=== PATIENT | male | born 1960 | race Caucasian/White ===

== ENCOUNTER → 2017-11-12 | Outpatient (CLI) | payer MEDICARE, SELFPAY | PROVIDERS: Visit Provider Nurse Practitioner Family | DX: Z79.899 Other long term (current) drug therapy (principal) | CPT/HCPCS: 80305 ==

== ENCOUNTER → 2017-11-30 14:08 | Outpatient (CLI) | payer MEDICARE, SELFPAY ==
[2017-11-30 15:42] LABS: Chol/HDL Ratio 3.5 (1-3.5); Cholesterol 170 mg/dL (140-200); HDL Cholesterol 48 mg/dL (27-67); LDL Cholesterol 106 mg/dL (0-130); Prostate Specific Ag Screen 0.6 ng/mL (0.0-4.0); Triglycerides 81 mg/dL (30-200); VLDL Cholesterol 16 mg/dL (0-40)
== END ==
PROVIDERS: PCP Physician Assistant; Visit Provider Urology
DX: E78.4 Other hyperlipidemia (principal); Z12.5 Encounter for screening for malignant neoplasm of prostate; N40.0 Benign prostatic hyperplasia without lower urinary tract symptoms; E29.1 Testicular hypofunction
CPT/HCPCS: 36415; 80061; G0103

== ENCOUNTER → 2017-12-17 10:48 | Outpatient (REF) | payer MEDICARE, SELFPAY ==
[2017-12-17 14:24] LABS: Amphetamine/Metha Screen,Urine Negative ng/mL (<1000); Barbiturates Screen,Urine Negative ng/mL (<200); Benzodiazepines Screen,Urine Negative ng/mL (200); Cannabinoid Screen,Urine Positive ng/mL (<50); Cocaine Screen,Urine Negative ng/g (<300); Methadone Screen,Urine Negative ng/mL (<300); Opiate Screen,Urine Positive ng/mL (<300); Phencyclidine Screen,Urine Negative ng/mL (<25)
== END ==
LOC: LAB 10:48
PROVIDERS: Visit Provider Nurse Practitioner Family
DX: Z79.899 Other long term (current) drug therapy (principal)
CPT/HCPCS: 80305

== ENCOUNTER → 2018-02-09 11:12 | Outpatient (REF) | payer MEDICARE, SELFPAY ==
[2018-02-09 14:07] LABS: Amphetamine/Metha Screen,Urine Negative ng/mL (<1000); Barbiturates Screen,Urine Negative ng/mL (<200); Benzodiazepines Screen,Urine Negative ng/mL (200); Cannabinoid Screen,Urine Positive ng/mL (<50); Cocaine Screen,Urine Negative ng/g (<300); Methadone Screen,Urine Negative ng/mL (<300); Opiate Screen,Urine Positive ng/mL (<300); Phencyclidine Screen,Urine Negative ng/mL (<25)
== END ==
LOC: LAB 11:12
PROVIDERS: Visit Provider Physician Assistant
DX: Z79.899 Other long term (current) drug therapy (principal)
CPT/HCPCS: 80305

== ENCOUNTER → 2018-04-11 14:39 | Outpatient (REF) | payer MEDICARE, SELFPAY ==
[2018-04-11 17:44] LABS: Basophils % 0.3 % (0.1-2.0); Eosinophils # 0.1 K/mm3 (0.0-0.4); Eosinophils % 1.1 % (0.1-12.0); Hematocrit 47.2 % (42.0-52.0); Hemoglobin 15.4 g/dL (14.1-18.0); Lymphocytes # 3.1 K/mm3 (0.7-4.5); Lymphocytes % 31.3 K/mm3 (10-50); Mean Corpuscular HGB Conc 32.7 g/dL (31.8-35.4); Mean Corpuscular Hemoglobin 31.4 pg (27.0-31.2); Mean Platelet Volume 7.6 fl (7.4-10.4); Monocytes # 0.4 K/mm3 (0.1-1.0); Monocytes % 3.7 % (1.7-9.3); Neutrophils # 6.2 K/mm3 (1.8-7.8); Neutrophils % 63.4 % (37.0-80.0); Platelet Count 318 K/mm3 (142-424); Red Blood Count 4.92 M/mm3 (4.60-6.20); Red Cell Distribution Width 13.8 % (11.5-17.5); White Blood Count 9.8 K/mm3 (4.8-10.8)
[2018-04-11 19:23] LABS: Alanine Aminotransferase 28 U/L (12-78); Albumin Level 3.9 gm/dL (3.4-5.0); Albumin/Globulin Ratio 1.2 (1.1-1.8); Alkaline Phosphatase 111 U/L (46-116); Anion Gap 12.8 mEq/L (5-15); Aspartate Amino Transferase 21 U/L (15-37); Bilirubin,Total 0.4 mg/dL (0.2-1.0); Blood Urea Nitrogen 12 mg/dL (7-18); Calcium 9.7 mg/dL (8.5-10.1); Carbon Dioxide 29 mmol/L (21.0-32.0); Chloride 103 mmol/L (98-107); Chol/HDL Ratio 4.3 (1-3.5); Cholesterol 189 mg/dL (140-200); Creatinine,Serum 1.01 mg/dL (0.70-1.30); Estimated Glomerular Filt Rate 75 ml/min (>60); GFR (African American) 91 ML/MIN (>60); Globulin 3.3 gm/dl (1.3-3.2); Glucose 155 mg/dL (74-106); HDL Cholesterol 44 mg/dL (27-67); LDL Cholesterol 116 mg/dL (0-130); Potassium 3.8 mmoL/L (3.5-5.1); Sodium 141 mmol/L (136-145); T4 (Thyroxine) 8.7 ug/dl (4.7-13.3); Thyroid Stimulating Hormone 4.56 uIU/ml (0.358-3.740); Total Protein,Serum 7.2 gm/dL (6.4-8.2); Triglycerides 143 mg/dL (30-200); VLDL Cholesterol 29 mg/dL (0-40)
[2018-04-13 07:43] LABS: Prostate Specific Ag 0.5 ng/mL (0.0-4.0); Vitamin B12 309 pg/mL (232-1245); Vitamin D 25 Hydroxy 23.2 ng/mL (30.0-100.0)
== END ==
LOC: LAB 14:39
PROVIDERS: Visit Provider Physician Assistant
DX: E29.1 Testicular hypofunction (principal); N52.9 Male erectile dysfunction, unspecified; M51.36 Other intervertebral disc degeneration, lumbar region; G62.9 Polyneuropathy, unspecified; Z79.899 Other long term (current) drug therapy
CPT/HCPCS: 80053; 80061; 82607; 82652; 84153; 84154; 84436; 84443; 85025

== ENCOUNTER → 2018-05-10 10:54 | Outpatient (REF) | payer MEDICARE, SELFPAY ==
[2018-05-10 22:58] LABS: Amphetamine/Metha Screen,Urine Negative ng/mL (<1000); Barbiturates Screen,Urine Negative ng/mL (<200); Benzodiazepines Screen,Urine Negative ng/mL (200); Cannabinoid Screen,Urine Positive ng/mL (<50); Cocaine Screen,Urine Negative ng/g (<300); Methadone Screen,Urine Negative ng/mL (<300); Opiate Screen,Urine Positive ng/mL (<300); Phencyclidine Screen,Urine Negative ng/mL (<25)
== END ==
LOC: LAB 10:54
PROVIDERS: Visit Provider Physician Assistant
DX: M54.5 Low back pain (principal)
CPT/HCPCS: 80305

== ENCOUNTER → 2018-10-05 06:47 | Outpatient (CLI) | payer MEDICARE, SELFPAY ==
--- NOTE | 2018-10-05 06:51 | NM_ITS ---
CARDIOLITE SPECT MYOCARDIAL PERFUSION SCAN, REST AND STRESS: EXERCISE STRESS [facility] REVIEW QGS EF AND WALL MOTION EVALUATION: QPS - PERFUSION EVALUATION HISTORY: Chest pain, HTN, Tobacco use, CAD DOSE: 10.44 mCi technetium 99m mibi intravenously at rest followed by 30.3 mCi technetium 99m mibi following the intravenous ministration of 0.4 mg of Lexiscan. Resting blood pressure is 146/75. Stress blood pressure 140/73. FINDINGS: Ejection fraction is calculated to be 55%. Stress images reveal decreased activity in the inferior septal and apical wall. Rest images reveal improved activity Within those areas yet still mildly diminished. Gated images calculated ejection fraction of 55% with normal wall motion IMPRESSION: Previous nontransmural myocardial infarction involving the inferior septal and apical wall with large degree of reversible ischemia. Normal ejection fraction normal wall motion. High risk abnormal stress test
--- NOTE | 2018-10-05 06:51 | CA_ITS ---
PROCEDURE: 2-D M-mode and color Doppler study INDICATIONS FOR THE TEST: Chest pain+ COPD Heart Murmur Tobacco Smoking+ Palpitations Fatigue Syncope Edema Hypertension+Diabetes Mellitus Rheumatic Fever SOB STALEY Obesity Hyperlipidemia Family History HD Additional History CAD, stent PATIENT INFORMATION HEIGHT: 69 WEIGHT: 169 GENDER: Male B/P: 130/60 2-D/M-MODE INTERPRETATION: 2-D MEASUREMENTS OBSERVED VALUES IN CMS Right Ventricular Dimension (RVDd) 2.7 Interventricular Septum (Thickness)(IVsd) 1.2 Left Ventricular Internal Dimensions(LVIDd) 4.6 Left Ventricular Posterior Wall (Thickness)(LVPWd) 1.3 Aortic Root 3.0 Aortic Cusp Separation 2.1 Left Atrial Dimensions (LAD) 3.1 2D 1. Left atrium is mildly enlarged, left ventricle is normal size, mild concentric left ventricular hypertrophy, visually estimated ejection fraction of 55% with no regional wall motion abnormality. 2. The right atrium and right ventricle are mildly enlarged with normal contractility. 3. The aortic valve is thickened and calcified leaflet continue to display mobility. 4. The mitral and tricuspid valvular grossly normal. 5. The pulmonic valve is poorly visualized. 6. No significant pericardial effusion noted. DOPPLER INTERROGATION: Doppler interrogation of the aortic, mitral and tricuspid valvular presence of moderate aortic, mild mitral and tricuspid regurgitation, tricuspid regurgitation jet velocity is inadequate for calculation of the right ventricular systolic pressure, grade 1 diastolic dysfunction seen with tissue Doppler evidence of raised left atrial pressure. CONCLUSION: 1. Mildly enlarged left atrium, normal left ventricular size, mild concentric left ventricular hypertrophy, visually estimated ejection fraction 55% with no regional wall motion abnormality, grade 1 diastolic dysfunction seen with tissue Doppler evidence of raised left atrial pressure. 2. Moderate aortic, mild mitral and tricuspid regurgitation 3. No significant pericardial effusion noted.
--- NOTE | 2018-10-05 07:20 | HMH.ITSHM ---
Current Home Medications as stated by this patient Anupam Holland or loss control representative. []AMLODIPINE METOPROLOL ROSUVASTATIN LOSARTAN OXYCODONE GABAPENTIN QUETIAPINE
[2018-10-05 14:29] LABS: Amphetamine/Metha Screen,Urine Negative ng/mL (<1000); Barbiturates Screen,Urine Negative ng/mL (<200); Benzodiazepines Screen,Urine Negative ng/mL (<200); Cannabinoid Screen,Urine Positive ng/mL (<50); Cocaine Screen,Urine Negative ng/mL (<300); Methadone Screen,Urine Negative ng/mL (<300); Opiate Screen,Urine Positive ng/mL (<300); Phencyclidine Screen,Urine Negative ng/mL (<25)
== END ==
PROVIDERS: PCP Physician Assistant; Visit Provider Internal Medicine
DX: I25.10 Atherosclerotic heart disease of native coronary artery without angina pectoris; R06.00 Dyspnea, unspecified; E78.5 Hyperlipidemia, unspecified; F17.200 Nicotine dependence, unspecified, uncomplicated; I10 Essential (primary) hypertension; R94.31 Abnormal electrocardiogram [ECG] [EKG]
CPT/HCPCS: 78452; 80305; 93017; 93306; A9502; J2785

== ENCOUNTER → 2018-10-05 13:46 | Outpatient (CLI) | payer MEDICARE, SELFPAY | PROVIDERS: Visit Provider Physician Assistant | DX: Z79.899 Other long term (current) drug therapy (principal) | CPT/HCPCS: 80305 ==

== ENCOUNTER → 2018-11-17 11:26 | Outpatient (CLI) | payer MEDICARE, SELFPAY ==
[2018-11-17 12:25] LABS: Alanine Aminotransferase 34 U/L (12-78); Albumin Level 3.6 gm/dL (3.4-5.0); Alkaline Phosphatase 136 U/L (46-116); Bilirubin,Direct 0.1 mg/dL (0.0-0.2); Bilirubin,Indirect 0.1 mg/dL (0.0-0.9); Bilirubin,Total 0.2 mg/dL (0.2-1.0); Cholesterol 144 mg/dL (140-200); HDL Cholesterol 48 mg/dL (27-67); LDL Cholesterol 80 mg/dL (0-130); Total Protein,Serum 6.9 gm/dL (6.4-8.2); Triglycerides 81 mg/dL (30-200); VLDL Cholesterol 16 mg/dL (0-40)
[2018-11-17 12:32] LABS: Aspartate Amino Transferase 26 U/L (15-37)
== END ==
PROVIDERS: Visit Provider Physician Assistant
DX: Z79.899 Other long term (current) drug therapy (principal); E78.5 Hyperlipidemia, unspecified
CPT/HCPCS: 36415; 80061; 80076

== ENCOUNTER → 2019-03-03 08:56 | Outpatient (CLI) | payer MEDICARE, SELFPAY ==
--- NOTE | 2019-03-03 08:59 | US_ITS ---
US abd. aorta screening HISTORY: Screening for aortic aneurysm ITS.REASON: . ORDERING PHYSICIAN: French De León MD PATIENT AGE: 58 years Comparison: None FINDINGS: There is mild plaque present in the abdominal aorta. Maximum AP dimension is 2 cm at the level the umbilicus. No evidence of aneurysm. Proximal common iliacs are unremarkable. IMPRESSION: 1. No evidence of abdominal aortic aneurysm. 2. Atheromatous changes of the aorta are present
== END ==
PROVIDERS: PCP Physician Assistant; Visit Provider Internal Medicine Cardiovascular Disease
DX: E78.5 Hyperlipidemia, unspecified (principal); F17.200 Nicotine dependence, unspecified, uncomplicated; I10 Essential (primary) hypertension; I25.10 Atherosclerotic heart disease of native coronary artery without angina pectoris; R06.00 Dyspnea, unspecified; Z13.6 Encounter for screening for cardiovascular disorders
CPT/HCPCS: 76705

== ENCOUNTER → 2019-05-11 13:36 | Outpatient (CLI) | payer MEDICARE, SELFPAY ==
--- NOTE | 2019-05-11 13:36 | MR_ITS ---
MR lumbar spine wo con, MR 3-d myelogram/MRCP HISTORY: Low back pain X4-5YRS. Bilateral leg pain, numbness, and tingling. No Hx lumbar surgery. ITS.REASON: Low back pain ORDERING PHYSICIAN: JORGE LUIS Hart PATIENT AGE: 59 years Comparison: MRI 10-09-16 TECHNIQUE: Standard multiplanar multiecho sequences are performed without contrast. 3-D MIP and myelographic images are also rendered and reviewed FINDINGS: There is normal alignment. The spinal cord in that the L1-L2 level. L1-L2: Mild facet and ligamentum flavum hypertrophic change. L2-L3: Mild facet and ligamentum flavum hypertrophic change. L3-L4: Minimal bulging disc along with facet and ligamentum flavum hypertrophic change which is not significant change. L4-L5: Concentric bulging disc along with facet and ligamentum flavum hypertrophy with mild bilateral lateral recess and foraminal narrowing. Not significantly changed. L5-S1: Degenerative disc disease with bulging disc with bilateral foraminal narrowing slightly greater on the right. No canal stenosis or disc herniation. Right renal cyst is noted IMPRESSION: 1. Mild multilevel lumbar spondylosis with degenerative disc disease and minimal bulging disc along with mild facet and ligamentum hypertrophy. Please see above for detailed description at each level. 2. Mild bulging disc with mild bilateral foraminal narrowing slightly greater on the right at L5-S1. The right-sided foraminal narrowing may be slightly worse compared to the previous exam. 3. No canal stenosis or disc herniation.
== END ==
PROVIDERS: PCP Physician Assistant; Visit Provider Physician Assistant
DX: M51.36 Other intervertebral disc degeneration, lumbar region (principal); M54.5 Low back pain
CPT/HCPCS: 72148; 76376

== ENCOUNTER → 2019-07-05 13:54 | Outpatient (CLI) | payer MEDICARE, SELFPAY ==
[2019-07-05 15:32] LABS: Amphetamine/Metha Screen,Urine Negative ng/mL (<1000); Barbiturates Screen,Urine Negative ng/mL (<200); Benzodiazepines Screen,Urine Negative ng/mL (<200); Cannabinoid Screen,Urine Positive ng/mL (<50); Cocaine Screen,Urine Negative ng/mL (<300); Methadone Screen,Urine Negative ng/mL (<300); Opiate Screen,Urine Positive ng/mL (<300); Phencyclidine Screen,Urine Negative ng/mL (<25)
== END ==
PROVIDERS: Visit Provider Physician Assistant
DX: M51.36 Other intervertebral disc degeneration, lumbar region (principal)
CPT/HCPCS: 80305

== ENCOUNTER → 2019-11-01 14:42 | Outpatient (CLI) | payer MEDICARE, SELFPAY ==
[2019-11-01 15:06] LABS: Basophils % 0.3 % (0.1-2.0); Eosinophils # 0.2 K/mm3 (0.0-0.4); Eosinophils % 1.9 % (0.1-12.0); Hemoglobin 16.7 g/dL (14.1-18.0); Lymphocytes % 35.2 % (10-50); Mean Corpuscular HGB Conc 30.3 g/dL (31.8-35.4); Mean Corpuscular Hemoglobin 30.9 pg (27.0-31.2); Mean Corpuscular Volume 101.8 fl (80-94); Monocytes # 0.6 K/mm3 (0.1-1.0); Monocytes % 4.9 % (1.7-9.3); Neutrophils # 6.6 K/mm3 (1.8-7.8); Neutrophils % 57.7 % (37.0-80.0); Platelet Count 386 K/mm3 (142-424); Red Cell Distribution Width 14.2 % (11.5-17.5); White Blood Count 11.4 K/mm3 (4.8-10.8)
[2019-11-01 15:33] LABS: Alanine Aminotransferase 36 U/L (12-78); Albumin Level 4.2 gm/dL (3.4-5.0); Albumin/Globulin Ratio 1.1 (1.1-1.8); Alkaline Phosphatase 138 U/L (46-116); Anion Gap 18.1 mEq/L (5-15); Aspartate Amino Transferase 22 U/L (15-37); Bilirubin,Total 0.3 mg/dL (0.2-1.0); Blood Urea Nitrogen 17 mg/dL (7-18); Calcium 9.7 mg/dL (8.5-10.1); Carbon Dioxide 26 mmol/L (21.0-32.0); Chloride 99 mmol/L (98-107); Chol/HDL Ratio 4.1 (1-3.5); Cholesterol 204 mg/dL (140-200); Creatinine,Serum 1.18 mg/dL (0.70-1.30); Estimated Glomerular Filt Rate 63 ml/min (>60); GFR (African American) 76 ML/MIN (>60); Globulin 3.8 gm/dl (1.3-3.2); Glucose 107 mg/dL (74-106); HDL Cholesterol 50 mg/dL (27-67); LDL Cholesterol 136 mg/dL (0-130); Potassium 5.1 mmoL/L (3.5-5.1); Sodium 138 mmol/L (136-145); T4 (Thyroxine) 8.1 ug/dl (4.7-13.3); Thyroid Stimulating Hormone 4.86 uIU/ml (0.358-3.740); Triglycerides 91 mg/dL (30-200); VLDL Cholesterol 18 mg/dL (0-40)
[2019-11-03 11:39] LABS: Folate 6.8 ng/mL (>3.0); Vitamin D 25 Hydroxy 14.5 ng/mL (30.0-100.0)
[2019-11-03 19:32] LABS: Vitamin B12 425 pg/mL (232-1245)
== END ==
PROVIDERS: Visit Provider Physician Assistant
DX: I10 Essential (primary) hypertension (principal); E55.9 Vitamin D deficiency, unspecified
CPT/HCPCS: 80053; 80061; 82607; 82652; 82746; 84436; 84443; 85025

== ENCOUNTER → 2020-06-10 13:21 | Outpatient (CLI) | payer MEDICARE, SELFPAY ==
[2020-06-10 13:36] LABS: Basophils % 0.2 % (0.1-2.0); Chloride 104 mmol/L (98-107); Eosinophils # 0.3 K/mm3 (0.0-0.4); Eosinophils % 3.3 % (0.1-12.0); Hemoglobin 15.2 g/dL (14.1-18.0); Lymphocytes # 3.2 K/mm3 (0.7-4.5); Lymphocytes % 31.9 % (10-50); Mean Corpuscular HGB Conc 33.9 g/dL (31.8-35.4); Mean Corpuscular Hemoglobin 33.7 pg (27.0-31.2); Mean Corpuscular Volume 99.4 fl (80-94); Mean Platelet Volume 8.7 fl (7.4-10.4); Monocytes # 0.6 K/mm3 (0.1-1.0); Monocytes % 5.6 % (1.7-9.3); Neutrophils % 59.1 % (37.0-80.0); Platelet Count 323 K/mm3 (142-424); Potassium 4.7 mmoL/L (3.5-5.1); Red Blood Count 4.53 M/mm3 (4.60-6.20); Red Cell Distribution Width 14.3 % (11.5-17.5); Sodium 141 mmol/L (136-145); White Blood Count 10.1 K/mm3 (4.8-10.8)
[2020-06-10 13:38] LABS: Alanine Aminotransferase 80 U/L (12-78); Alkaline Phosphatase 106 U/L (38-126); Aspartate Amino Transferase 76 U/L (17-59); Bilirubin,Total 0.3 mg/dl (0.2-1.3); Blood Urea Nitrogen 12 mg/dl (9-20); Estimated Glomerular Filt Rate 86 ml/min (>60); GFR (African American) 103 ML/MIN (>60)
[2020-06-10 13:39] LABS: Albumin Level 4.3 g/dl (3.5-5.0); Albumin/Globulin Ratio 1.5 (1.1-1.8); Anion Gap 15.7 mEq/L (5-15); Calcium 9.8 mg/dl (8.4-10.2); Carbon Dioxide 26 mmol/L (22.0-30.0); Chol/HDL Ratio 3.6 (1-3.5); Cholesterol 206 mg/dl (140-200); Globulin 2.9 g/dL (1.3-3.2); Glucose 104 mg/dl (74-100); HDL Cholesterol 58 mg/dl (40-60); Total Protein,Serum 7.2 g/dl (6.3-8.2); Triglycerides 167 mg/dl (30-150); VLDL Cholesterol 33 mg/dL (0-40)
[2020-06-10 13:50] LABS: Direct LDL Cholesterol 121.06 mg/dL (100-129)
[2020-06-10 13:56] LABS: T4 (Thyroxine) 6.6 ug/dl (5.53-11.0)
[2020-06-10 14:10] LABS: Thyroid Stimulating Hormone 2.19 uIU/mL (0.465-4.68)
[2020-06-10 16:10] LABS: Prostate Specific Ag Screen 0.6 ng/ml (0.0-4.0)
[2020-06-12 14:30] LABS: Hep A Ab, IgM Negative (Negative); Hepatitis B Core Antibody IgM Negative (Negative); Hepatitis B Surface Antigen Negative (Negative)
[2020-06-13 09:37] LABS: Hepatitis C Antibody >11.0 s/co ratio (0.0-0.9)
== END ==
PROVIDERS: Visit Provider Physician Assistant
DX: G47.00 Insomnia, unspecified; M51.9 Unspecified thoracic, thoracolumbar and lumbosacral intervertebral disc disorder; E78.5 Hyperlipidemia, unspecified; R53.83 Other fatigue; E07.9 Disorder of thyroid, unspecified
CPT/HCPCS: 80053; 80061; 80074; 84436; 84443; 85025; G0103

== ENCOUNTER → 2020-06-17 11:25 | Outpatient (CLI) | payer MEDICARE, SELFPAY | PROVIDERS: Visit Provider Physician Assistant | DX: R76.8 Other specified abnormal immunological findings in serum | CPT/HCPCS: 36415; 87522 ==

== ENCOUNTER → 2020-08-30 11:33 | Outpatient (CLI) | payer MEDICARE, SELFPAY ==
[2020-08-30 11:56] LABS: Basophils % 0.5 % (0.1-2.0); Eosinophils # 0.3 K/mm3 (0.0-0.4); Eosinophils % 3.5 % (0.1-12.0); Hematocrit 50.5 % (42.0-52.0); Hemoglobin 16.3 g/dL (14.1-18.0); Mean Corpuscular HGB Conc 32.3 g/dL (31.8-35.4); Mean Corpuscular Hemoglobin 33.2 pg (27.0-31.2); Mean Corpuscular Volume 102.7 fl (80-94); Mean Platelet Volume 7.2 fl (7.4-10.4); Monocytes # 0.5 K/mm3 (0.1-1.0); Monocytes % 5.3 % (1.7-9.3); Neutrophils # 4.6 K/mm3 (1.8-7.8); Neutrophils % 48.7 % (37.0-80.0); Platelet Count 317 K/mm3 (142-424); Red Blood Count 4.92 M/mm3 (4.60-6.20); Red Cell Distribution Width 13.5 % (11.5-17.5); White Blood Count 9.5 K/mm3 (4.8-10.8)
[2020-08-30 13:46] LABS: Anion Gap 14.5 mEq/L (5-15); Blood Urea Nitrogen 14 mg/dl (9-20); Calcium 10.1 mg/dl (8.4-10.2); Carbon Dioxide 29 mmol/L (22.0-30.0); Chloride 101 mmol/L (98-107); Estimated Glomerular Filt Rate 76 ml/min (>60); GFR (African American) 92 ML/MIN (>60); Glucose 103 mg/dl (74-100); Potassium 4.5 mmoL/L (3.5-5.1); Sodium 140 mmol/L (136-145)
[2020-08-30 15:44] LABS: Coronavirus 19 IgG Antibody Negative (Negative); Coronavirus 19 IgM Antibody Negative (Negative)
== END ==
PROVIDERS: Visit Provider Internal Medicine
DX: Z01.89 Encounter for other specified special examinations (principal); Z79.82 Long term (current) use of aspirin; Z51.81 Encounter for therapeutic drug level monitoring
CPT/HCPCS: 36415; 80048; 85025; 86328

== ENCOUNTER 2020-09-02 08:57 | Day surgery (SDC) | payer MEDICARE, SELFPAY ==
[2020-09-02] VITALS (10 sets, daily range): BP systolic 127–173; BP diastolic 72–102; PULSE 64–78; RESP 16–18; TEMP 36.3; O2SAT 94–97; BMI 27.7
--- NOTE | 2020-09-02 | IR_ITS ---
APPROVED REPORT Patient Location: Outpatient Concrete Bucket Unloader: SOHAN Trejo RT (R) PROCEDURES Left heart catheterization Left ventriculogram Selective coronary angiogram Drug-eluting stent deployment to the proximal mid dominant circumflex artery Catheter placement in the left common iliac artery Left iliofemoral selective angiogram Catheter placement into the left superficial femoral artery Left superficial femoral artery selective angiogram with unilateral runoff to the left foot INDICATION Coronary artery disease, Angina pectoris, Claudication, Peripheral artery disease Informed consent was obtained prior to the procedure. COMPLICATIONS none Estimated Blood Loss: less than 10 mls TECHNIQUE One percent lidocaine was used to anesthetize the right groin. The right femoral artery was accessed via the Seldinger technique. A 5-Khmer sheath was placed in the right femoral artery. The JL-4 and JR-4 catheter was also used to perform left heart catheterization left ventriculogram and selective coronary angiogram. At the end of the procedure the JR4 catheter was used to cannulate the left common iliac artery and iliofemoral angiography was performed. The catheter was then advanced into the left superficial femoral artery where selective left superficial femoral artery angiography was performed with unilateral runoff to the left foot. At the end of the procedure therapeutic heparin was administered and the 5 Khmer sheath was exchanged for a 6 Khmer sheath. An EBU 3.75 guide catheter was placed in the circumflex artery where 3 mm x 26 mm resolute deandra stent was deployed at 18 ramírez reducing the stenosis. A 3 mm x 8 mm noncompliant balloon was then used to post dilate and under deployed area. The balloon was taken to 24 ramírez. Following this an additional 3.25 x 8 mm noncompliant balloon was then placed in the same area and deployed at 24 ramírez thereby finally reducing the stenosis to 0%. JEAN-PAUL-3 flow was present before and after the procedure. At the end of the procedure the apparatus was removed the groin was reprepped gloves were changed sheath was removed good hemostasis was achieved using Perclose device patient was transferred to the postop holding area stable condition ANGIOGRAPHIC RESULTS The left main artery Normal The left anterior descending artery Has stents in the proximal segment which are widely patent with mild 20% in-stent restenosis. Remaining LAD has mild atheromatous plaque nothing greater than 20% The circumflex artery Is a large dominant vessel giving rise to a large ramus intermedius which has an ostial proximal 10 to 20% smooth stenosis. After the ramus intermedius the proximal circumflex artery has a concentric 80 to 90% stenosis which represents in-stent restenosis. The remaining vessel has mild atheromatous plaque of 10 to 20% The right coronary artery Nondominant normal The LEA ventriculogram reveals Normal 65% The left ventricular end-diastolic pressure 10 mmHg Left common internal and external iliac arteries are patent with mild 10% atheromatous plaque Left common femoral arteries normal Left profunda femoris artery is normal Left superficial femoral artery has mild atheromatous plaque nothing greater than 20 to 30% Left popliteal artery has mild 10 to 20% atheromatous plaque The anterior tibialis artery and peroneal arteries are both patent. The left posterior tibialis artery appears proximally occluded. There is two-vessel runoff into the left foot IMPRESSION Coronary disease as described above Successful stenting of the circumflex artery severe disease reduced to 0% with one drug-eluting stent Normal ejection fraction Normal left ventricular end-diastolic pr
[2020-09-02 12:42] LABS: CATHL Activated Clotting Time 285 SEC (74-125)
[2020-09-02 12:42] LABS: CATHL Activated Clotting Time 310 SEC (74-125)
--- NOTE | 2020-09-02 13:56 | HMH.PHACLD ---
Anupam Holland has received discharge medication counseling on the following medications: PATIENT IS CURRENT TAKING PLAVIX, ASPIRIN, ROSUVASTATIN, METOPROLOL, AND LOSARTAN. NO MED CHANGES MADE BY MD POST CATH.
== END 2020-09-02 14:45 | disposition home or self-care (01) ==
LOC: CATHLAB 08:59
PROVIDERS: PCP Physician Assistant; Visit Provider Internal Medicine
DX: I25.118 Atherosclerotic heart disease of native coronary artery with other forms of angina pectoris (principal); I77.1 Stricture of artery; T82.855A Stenosis of coronary artery stent, initial encounter; I70.212 Atherosclerosis of native arteries of extremities with intermittent claudication, left leg; Z95.5 Presence of coronary angioplasty implant and graft; I10 Essential (primary) hypertension; E78.5 Hyperlipidemia, unspecified; Z72.0 Tobacco use
CPT/HCPCS: 36247; 75710; 85347; 92928; 93458; 99152; 99153; C1725; C1760; C1769; C1776; C1876; C1894; C9600; J1644; Q9967

== ENCOUNTER → 2020-11-29 14:33 | Outpatient (CLI) | payer MEDICARE, SELFPAY ==
--- NOTE | 2020-11-29 14:43 | XR_ITS ---
PROCEDURE: XR CHEST 2V CLINICAL HISTORY: smoker, cough Chest pain, cough, smoker COMPARISON: CR CXR CHEST(2 VIEWS-NOT PORTABLE) from 05/13/2017 FINDINGS: The cardiomediastinal silhouette and pulmonary vascularity are within normal limits. The lungs are clear without infiltrates, suspicious nodules, or pleural effusions. Degenerative changes are present in the thoracic spine IMPRESSION: No acute findings. Dictated by: Gaurav Gould MD 11/29/2020 15:48 Gaurav Gould MD in [facility] 11/29/2020 15:48
== END ==
PROVIDERS: PCP Physician Assistant; Visit Provider Physician Assistant
DX: F17.210 Nicotine dependence, cigarettes, uncomplicated (principal); R05 Cough
CPT/HCPCS: 71046

== ENCOUNTER → 2020-12-05 12:49 | Outpatient (CLI) | payer MEDICARE, SELFPAY ==
--- NOTE | 2020-12-05 14:23 | CT_ITS ---
PROCEDURE: CT SINUS WO CON CLINICAL HISTORY: can't breathe PT STATES HE CANT BREATHE OUT OF LEFT NOSTRIL X 15 YEARS NO PRIOR COMPARISON: No exams were available for comparison TECHNIQUE: Axial images obtained with sagittal and coronal reformats. All CT scans at the facility use one or more dose reduction, viz: automated exposure control, ma/kV adjustment per patient size (including targeted exams where dose is matched to indication, i.e. head), or iterative reconstruction technique. FINDINGS: No significant mucosal thickening. No sinus air-fluid levels. There is a small septal spur projecting toward the left resulted in the leftward nasal septal deviation. The nasal turbinates have an unremarkable appearance. The distal aspect of the nose is angled toward the right. There is moderate deviation of the nasal septum anteriorly toward the left causing narrowing of the left nasal passage. No sonia bullosa. The ostiomeatal units are patent. There are small calcific densities within the parotid glands on both sides. No evidence stone stones within Stensen's. No submandibular calculi evident. The orbits have an unremarkable appearance as do the mastoid sinuses. The patient is edentulous. There is a bony defect within the mandible on the right in the parasymphyseal region containing a small calcification and may represent a periapical abscess with a residual small [place] of 2. Dental correlation suggested. There are osteoarthritic changes of the TMJs with narrowing of the left mandibular condyle. IMPRESSION: 1. Leftward nasal septal deviation anteriorly involving the membranous septum causing narrowing of the nasal passage. 2. Multiple tiny calcifications in the parotid glands suggesting numerous small calculi but no evidence of stones within the duct. 3. Small defect in the parasymphyseal region of the mandible on the right possibly due to a periapical cyst with a small residual amount of tooth. Dental correlation needed. 4. TMJ osteoarthritic change Dictated by: Gaurav Gould MD 12/06/2020 05:37 Gaurav Gould MD in [facility] 12/06/2020 05:37
--- NOTE | 2020-12-05 14:23 | CT_ITS ---
PROCEDURE: CT LUNG SCREENING CLINICAL INDICATION: Smoker Current smoker 70.5 pack year smoking history No prior COMPARISON: US ABD US ABD(COMPLETE-MULTI ORGANS from 01/20/2017 TECHNIQUE: The exam was performed on a GE Light Speed [address] scanner using 2.90 mGy CTDI. A low dose helical CT CHEST was performed on a multi-detector scanner. All CT scans at the facility use one or more dose reduction, viz: automated exposure control, ma/kV adjustment per patient size (including targeted exams where dose is matched to indication, i.e. head), or iterative reconstruction technique. The LDCT was performed in a facility that meets the criteria for the screening program. Data regarding this exam was submitted to ACR which is an approved registry. The order for this exam indicates that it came as a result of a lung cancer screening counseling shard decision-making visit that included all the elements required of such a visit including smoking cessation. The radiologist interpreting this exam meets the CMS criteria for the LDCT lung cancer screening program. The exam is reported using the Lung-RADS classification scale and reported to the ACR registry. NOTE: This study was performed for the specific purposes of lung cancer screening and is not an alternative to diagnostic chest CT. RADIATION DOSE: CTDI vol(CT dose Index-volume) = 2.90mG DLP (Dose Length Product) = 101.34 mGcm FINDINGS: Paraseptal and centrilobular emphysema with COPD and scattered areas of scarring with evidence of old granulomatous disease. No suspicious nodules identified OTHER FINDINGS: Coronary artery calcification and/or stents. Gynecomastia. There is a 12 mm hypodensity in the left hepatic lobe in the subcapsular region superiorly IMPRESSION: Lung-RADS Category 2 Benign Appearance or Behavior Follow-up: Continue annual screening with LDCT in 12 months 12 mm hypodensity in the left hepatic lobe. Consider ultrasound to determine cystic or solid nature. Dictated by: Gaurav Gould MD 12/09/2020 06:15 Gaurav Gould MD in [facility] 12/09/2020 06:15
[2020-12-05 16:06] VITALS: PULSE 84
== END ==
PROVIDERS: PCP Physician Assistant; Visit Provider Physician Assistant
DX: J34.89 Other specified disorders of nose and nasal sinuses; Z87.891 Personal history of nicotine dependence; J44.9 Chronic obstructive pulmonary disease, unspecified; R06.02 Shortness of breath; Z12.2 Encounter for screening for malignant neoplasm of respiratory organs
CPT/HCPCS: 70486; 71271; 94060; 94618; 94640; 94727; 94729

== ENCOUNTER → 2020-12-17 08:50 | Outpatient (CLI) | payer MEDICARE, SELFPAY ==
--- NOTE | 2020-12-17 08:55 | US_ITS ---
PROCEDURE: US LIVER CLINICAL INDICATION: Hypodensity of liver Evaluate liver lesion COMPARISON: US ABD US ABD(COMPLETE-MULTI ORGANS from 01/20/[address] LUNG SCREENING from 12/05/2020 FINDINGS: PANCREAS: Unremarkable. No obvious mass or abnormal fluid collection. No ductal dilatation LIVER: There is a 15 x 10 mm benign-appearing cyst in the left hepatic lobe corresponding to the CT abnormality. RIGHT KIDNEY: A complex cyst is present involving the right kidney measuring 4 x 2.8 x 2.6 cm. There is increased echogenicity along the anterior aspect of the cyst. This did have a similar appearance on older ultrasound of 01/20/2017. GALLBLADDER: Prior cholecystectomy. Common bile duct is normal at 5 mm. IMPRESSION: 1. Hypodense hepatic lesion represents a benign-appearing cyst. 2. There is a complex right renal cyst at 4 x 2.8 cm. There is increased echogenicity along the anterior aspect of the cyst which had a similar appearance on the previous exam. The dimensions of the cyst are however larger on today's exam. This may be technical in nature. Suggest 6 month follow-up to confirm interval stability. Dictated by: Gaurav Gould MD 12/17/2020 19:04 Gaurav Gould MD in [place] 12/17/2020 19:04
== END ==
PROVIDERS: PCP Physician Assistant; Visit Provider Physician Assistant
DX: R16.0 Hepatomegaly, not elsewhere classified (principal)
CPT/HCPCS: 76705

== ENCOUNTER → 2021-01-22 13:55 | Outpatient (CLI) | payer MEDICARE, SELFPAY ==
[2021-01-22 15:08] LABS: Amphetamine/Metha Screen,Urine Negative ng/ml (<1000)
[2021-01-22 15:09] LABS: Barbiturates Screen,Urine Negative ng/ml (<200)
[2021-01-22 15:10] LABS: Benzodiazepines Screen,Urine Positive ng/ml (<200)
[2021-01-22 15:11] LABS: Cannabinoid Screen,Urine Positive ng/ml (<50); Cocaine Screen,Urine Negative ng/ml (<300)
[2021-01-22 15:12] LABS: Methadone Screen,Urine Negative ng/ml (<300)
[2021-01-22 15:19] LABS: Opiate Screen,Urine Positive ng/ml (<300)
[2021-01-22 15:20] LABS: Phencyclidine Screen,Urine Negative ng/ml (<25)
== END ==
PROVIDERS: Visit Provider Physician Assistant
DX: Z79.899 Other long term (current) drug therapy (principal)
CPT/HCPCS: 80305

== ENCOUNTER → 2021-04-25 10:51 | Outpatient (CLI) | payer MEDICARE, SELFPAY ==
--- NOTE | 2021-04-25 10:52 | CA_ITS ---
APPROVED REPORT EXAM: Comprehensive 2D, Doppler, and color-flow Echocardiogram Registered Health Nurse: Key Dee RT(R) Ht: 5 ft 9 in Wt: 185lbs BSA: 2.00 BP: 119/72 mmHg Indications: Sinus tachycardia, pre op clearance for nasal surgery 04/29/21, smoker, hyperlipidemia, HTN, CAD, mod Aortic regurgitation, Abn EKG 2D Dimensions LVOT 2.21 cm (M/F) 1.5-2.5 LVEF (Martínez's) 50.10 % M: 52 - 72 LV Volume 96.00 mL M: 62 - 150 LV Volume Index 48.00 mL/m2 M: 34 - 74 M-Mode Dimensions RVDd 2.68 cm (0.9-2.6) LA Diam 2.26 cm (1.9-4.0) LVDd 4.89 cm (3.5-5.7) Ao Diam 3.24 cm (2.0-3.7) LVDs 3.57 cm (3.5-5.7) IVSd 1.36 cm (0.6-1.1) PWd 0.85 cm (0.6-1.1) EF (Teich) 52.50% FS 27.00% EDV (Teich) 112.30 mL ESV (Teich) 53.30 mL LV Diastology E Decel Time 190.00 (160-240 msec) E/A Ratio 0.9 MED E' 4.80 (< 7 cm/sec) E'/MED E' Ratio 15.19 (>14) LAT E' 6.40 (<10 cm/sec) E/LAT E' Ratio 11.39 (>14) Aortic Valve AoV Peak Akhil. 120.00 (50-130 cm/s) AI PHT 665.00 ms AO Peak GR. 5.70 mmHg AO Mean GR. 2.80 (<5 mmHg) AO VTI 21.04 (18-25 cm) Mitral Valve MV E Max Akhil. 73.00 (40-130 cm/s) MV A Velocity 85.00 (40-130 cm/s) E/A Ratio 0.85 MV Decel. Time 190.00 (160-240 ms) MV PHT 56.00 ms Left Ventricle Left atrium is mildly enlarged, left ventricle is normal size, mild concentric left ventricular hypertrophy, visually estimated ejection fraction 55% with no regional wall motion abnormality, grade 1 diastolic dysfunction seen without tissue Doppler evidence of raise left atrial pressure. Right Ventricle Right atrium and right ventricle are normal size and contractility. Aortic Valve Aortic valve is minimally thickened and calcified there is no aortic stenosis, there is mild aortic insufficiency. Mitral Valve Mitral valve leaflets are minimally thickened, there is mild mitral regurgitation. Tricuspid Valve Tricuspid grossly normal, there is trace tricuspid regurgitation, tricuspid regurgitation jet velocity is inadequate for calculation of the right ventricular systolic pressure. Pulmonic Valve Pulmonic valve is poorly visualized. Great Vessels Aortic root is normal size. Pericardium No significant pericardial effusion noted. Conclusion 1. Mildly enlarged left atrium, normal left ventricular size, mild concentric left ventricular hypertrophy, visually estimated ejection fraction 55% with no regional wall motion abnormality, grade 1 diastolic dysfunction seen without tissue Doppler evidence of raise left atrial pressure. 2. Mild aortic, mild mitral and tricuspid regurgitation. 3. No significant pericardial effusion noted. Electronically signed by : French De León, 04/25/2021 15:04:49
== END ==
PROVIDERS: PCP Physician Assistant; Visit Provider Nurse Practitioner Family
DX: I25.10 Atherosclerotic heart disease of native coronary artery without angina pectoris (principal); I35.1 Nonrheumatic aortic (valve) insufficiency
CPT/HCPCS: 93306

== ENCOUNTER → 2021-04-25 11:22 | Outpatient (CLI) | payer MEDICARE, SELFPAY ==
[2021-04-25 12:30] LABS: Alanine Aminotransferase 26 U/L (12-78); Albumin Level 4.7 g/dl (3.5-5.0); Alkaline Phosphatase 127 U/L (38-126); Aspartate Amino Transferase 33 U/L (17-59); Bilirubin,Direct 0.4 mg/dl (0.0-0.4); Bilirubin,Total 0.4 mg/dl (0.2-1.3); Chol/HDL Ratio 5.5 (1-3.5); Cholesterol 231 mg/dl (140-200); HDL Cholesterol 42 mg/dl (40-60); Total Protein,Serum 7.6 g/dl (6.3-8.2); Triglycerides 169 mg/dl (30-150); VLDL Cholesterol 34 mg/dL (0-40)
== END ==
PROVIDERS: Visit Provider Nurse Practitioner Family
DX: E55.9 Vitamin D deficiency, unspecified (principal); E78.2 Mixed hyperlipidemia; F17.200 Nicotine dependence, unspecified, uncomplicated; I10 Essential (primary) hypertension; I25.10 Atherosclerotic heart disease of native coronary artery without angina pectoris; I35.1 Nonrheumatic aortic (valve) insufficiency; R00.0 Tachycardia, unspecified; R94.31 Abnormal electrocardiogram [ECG] [EKG]; Z01.810 Encounter for preprocedural cardiovascular examination
CPT/HCPCS: 36415; 80061; 80076; 93306

== ENCOUNTER → 2021-04-29 14:55 | Outpatient (CLI) | payer MEDICARE, SELFPAY ==
[2021-04-29 15:33] LABS: Basophils # 0.1 K/mm3 (0-0.2); Basophils % 0.4 % (0.1-2.0); Eosinophils # 0.4 K/mm3 (0.0-0.4); Eosinophils % 3.3 % (0.1-12.0); Hematocrit 49.1 % (42.0-52.0); Hemoglobin 16.3 g/dL (14.1-18.0); Lymphocytes # 3.7 K/mm3 (0.7-4.5); Lymphocytes % 30.9 % (10-50); Mean Corpuscular HGB Conc 33.2 g/dL (31.8-35.4); Mean Corpuscular Hemoglobin 31.9 pg (27.0-31.2); Mean Corpuscular Volume 96.1 fl (80-94); Mean Platelet Volume 7.9 fl (7.4-10.4); Monocytes # 0.6 K/mm3 (0.1-1.0); Monocytes % 5.1 % (1.7-9.3); Neutrophils # 7.3 K/mm3 (1.8-7.8); Neutrophils % 60.4 % (37.0-80.0); Platelet Count 330 K/mm3 (142-424); Red Blood Count 5.11 M/mm3 (4.60-6.20); White Blood Count 12.1 K/mm3 (4.8-10.8)
--- NOTE | 2021-04-29 16:03 | ECG_ITS ---
APPROVED REPORT Exam: Resting ECG HR:70 bpm ECG Measurements Heart Rate 70 AXES MA 188 P 70 QRSd 108 QRS 44 QT 400 T 26 QTc 432 Conclusion Normal sinus rhythm Normal ECG Electronically signed by : Mariusz Brantley, 04/29/2021 21:57:43
[2021-04-29 17:22] LABS: Chloride 100 mmol/L (98-107); Potassium 4.9 mmoL/L (3.5-5.1); Sodium 137 mmol/L (136-145)
[2021-04-29 17:24] LABS: Alanine Aminotransferase 29 U/L (12-78); Aspartate Amino Transferase 34 U/L (17-59); Blood Urea Nitrogen 16 mg/dl (9-20); Estimated Glomerular Filt Rate 68 ml/min (>60); GFR (African American) 82 ML/MIN (>60)
[2021-04-29 17:25] LABS: Albumin Level 4.8 g/dl (3.5-5.0); Albumin/Globulin Ratio 1.6 (1.1-1.8); Alkaline Phosphatase 124 U/L (38-126); Anion Gap 14.9 mEq/L (5-15); Bilirubin,Total 0.6 mg/dl (0.2-1.3); Calcium 9.8 mg/dl (8.4-10.2); Carbon Dioxide 27 mmol/L (22.0-30.0); Glucose 81 mg/dl (74-100); Total Protein,Serum 7.8 g/dl (6.3-8.2)
== END ==
PROVIDERS: Visit Provider Otolaryngology
DX: Z01.812 Encounter for preprocedural laboratory examination (principal); Z11.52 Encounter for screening for COVID-19; J34.2 Deviated nasal septum; R68.89 Other general symptoms and signs; Z51.81 Encounter for therapeutic drug level monitoring; Z79.01 Long term (current) use of anticoagulants
CPT/HCPCS: 36415; 80053; 85025; 93005; U0003

== ENCOUNTER 2021-05-01 07:17 | Day surgery (SDC) | payer MEDICARE, SELFPAY ==
[2021-04-30 08:17] VITALS: BMI 27.4
[2021-05-01] VITALS (12 sets, daily range): BP systolic 96–169; BP diastolic 55–86; PULSE 88–112; RESP 14–18; TEMP 36.6–37.2; O2SAT 91–96
--- NOTE | 2021-05-01 09:35 | HMH.ANESCL ---
[facility] Anesthesia Checklist - Patient Identification Patient Identification: Arm Band - Structural Data Admitted From: Home Planned Operative Procedure/s: nasal septoplasty Consent for Planned Operative Procedure(s) Verified: Yes Verified Documents: Surgical Consent, History and Physical - NPO Status Verified Time NPO: 00:00 - Additional verifications Anesthesia Reactions: No Hx Blood Transfusions: No Blood Transfusion Reaction: No - Airway Assessment C-Spine Mobility Assessed: Yes (mp2) TMJ Mobility Assessed: Yes Dentition: Edentulous - Neurological Assessment Level of Consciousness: Awake, Alert - Anesthesia Plan Anesthesia Risk discussed: Yes Anesthesia Plan: Verified ASA Class: III Anesthesia Type: General [facility] History I have reviewed the patient's past medical history: Yes Medical History: Reports:: Coronary Artery Disease, Hepatitis, Hyperlipidemia, Hypertension Denies:: Cancer, Diabetes Mellitus Type 1, Diabetes Mellitus Type 2, Internal Pacemaker, MRSA, Seizures *Have you ever received a pneumonia vaccine?: No *Have you received a flu vaccine this season?: No Other Medical History: Reports: Hypothyroidism, Other. Denies: Blood Transfusion Reaction Anesthesia experience/problems:: nac Other Surgeries: Yes: Cardiac Catheterization, Cardiac Surgery, Cholecystectomy, Colonoscopy, Coronary Stent. No: Pacemaker Amputation: No Fractures: No - *Social History Last grade of school completed: 9th or 10th Smoking Status: Current every day smoker Tobacco Type: cigarettes # Packs/Day (cigarettes): 1 Alcohol Intake: current Alcohol Intake Frequency:: 3 or more drinks per day Substance Use Type: marijuana *Occupational Status:: disabled Housing: house Household Members: none *Travel in the last 8 weeks: None Family Hx:: No significant family history, Hypertension
--- NOTE | 2021-05-01 09:36 | HMH.ANESI ---
[facility] Anesthesia Record Part I Intake, IV Amount: 1,100 Estimated blood loss (mL): 10 Urine output (mL): 0 Blood Pressure: 98/59 SaO2: 92 Pulse Rate: 88 Respiratory Rate: 16 Temperature: 98 F Patient is:: Drowsy, Stable Stable to PACU at:: 09:30
--- NOTE | 2021-05-01 10:23 | P.OP_ITS ---
Date of procedure: 05/01/21 Pre-op Diagnosis:: 1. Deviated nasal septum to the left with 90% nasal airflow blockage 2. Allergic rhinitis 3. Hypertrophied inferior turbinates right and left Post-op Diagnosis:: same Procedure performed:: 1. Nasal septoplasty 2. Submucous resection both inferior turbinates Surgeon:: Keith Araya MD SUPERVISOR SALVAGE:: Viktor Baker Anesthesia: GETA Estimated blood loss (mL): 9 Operative findings:: same Operative note:: With patient under general anesthesia maintained with an endotracheal tube the face was prepped and draped. The nose was decongested with topical cocaine and 4 cc of 2% lidocaine with epinephrine were injected into the nasal septum. There was a severely deviated nasal septum to the left with a spur along the base of the septum and 90% nasal airflow blockage. A left hemitransfixion incision was made in the mucoperichondrium and the mucoperiosteum was elevated from the nasal septum. The spur of the quadrangular cartilage was removed and the posterior aspect of the quadrangular cartilage which was severely bent was removed. The vomer was straightened as was the prepped as well as the perpendicular plate of the ethmoid. And when that was done the septum could be placed in the midline. Both inferior turbinates were hyperplastic a right submucous inferior turbinectomy was done as well as a left submucous turbinectomy. Bleeding for the whole procedure was about 10 cc and was stopped with suction cautery. Surgicel snow was placed between the septal flaps and the flaps were sutured with 3-0 chromic and 2-0 chromic. The septum was maintained the midline. The nasal passages were thoroughly irrigated. Bacitracin ointment was placed in the nasal vestibules. And the patient was sent to recovery in good general condition. Condition: stable Disposition: PACU Complications:: none
--- NOTE | 2021-05-02 08:51 | HMH.ANESII ---
[facility] Anesthesia Record Part II Discharge Time: 09:59 Destination: Surgical Day Care (OP Surgery) PACU nurse assessment reviewed?: Yes Patient Condition:: Good Anesthesia Complications:: None Swallowing reflex intact?: Yes Cyanosis?: No Blood Pressure: 142/74 Pulse Rate: 93 Temperature: 98 F Mental Status: Alert & Oriented Pain level:: 0 Nausea and/or vomitting:: None Intake, IV Amount: 0
[2021-05-02 08:52] VITALS: BP 142/74; PULSE 93; TEMP 36.6
== END 2021-05-01 10:35 | disposition home or self-care (01) ==
LOC: OR 07:18
PROVIDERS: PCP Physician Assistant; Visit Provider Otolaryngology
PROC: (CPT 30520; principal; 2021-05-01 09:00)
DX: J34.3 Hypertrophy of nasal turbinates (principal); J34.2 Deviated nasal septum; J30.9 Allergic rhinitis, unspecified; I25.10 Atherosclerotic heart disease of native coronary artery without angina pectoris; E78.5 Hyperlipidemia, unspecified; I10 Essential (primary) hypertension; K75.9 Inflammatory liver disease, unspecified; E03.9 Hypothyroidism, unspecified; Z72.0 Tobacco use; I35.1 Nonrheumatic aortic (valve) insufficiency; Z79.82 Long term (current) use of aspirin; Z79.899 Other long term (current) drug therapy
CPT/HCPCS: 30140; 30520; 96374; 96375; J2405; J2710

== ENCOUNTER → 2021-06-11 13:02 | Outpatient (CLI) | payer MEDICARE, SELFPAY ==
[2021-06-11 14:40] LABS: Amphetamine/Metha Screen,Urine Negative ng/ml (<1000)
[2021-06-11 14:41] LABS: Barbiturates Screen,Urine Negative ng/ml (<200)
[2021-06-11 14:42] LABS: Benzodiazepines Screen,Urine Negative ng/ml (<200)
[2021-06-11 14:43] LABS: Cocaine Screen,Urine Positive ng/ml (<300); Methadone Screen,Urine Negative ng/ml (<300)
[2021-06-11 14:44] LABS: Cannabinoid Screen,Urine Positive ng/ml (<50); Opiate Screen,Urine Positive ng/ml (<300)
[2021-06-11 14:45] LABS: Phencyclidine Screen,Urine Negative ng/ml (<25)
== END ==
PROVIDERS: Visit Provider Physician Assistant
DX: Z79.899 Other long term (current) drug therapy (principal)
CPT/HCPCS: 80305

== ENCOUNTER → 2021-06-25 10:51 | Outpatient (CLI) | payer MEDICARE, SELFPAY ==
--- NOTE | 2021-06-25 10:51 | US_ITS ---
PROCEDURE: US KIDNEY CLINICAL INDICATION: Follow-up renal cyst COMPARISON: US ABD US ABD(COMPLETE-MULTI ORGANS from 01/20/[address] LUNG SCREENING from 12/05/2020 US US LIVER from 12/17/2020 FINDINGS: The right kidney is 12 x 5 x 4 cm . renal cortex is preserved. There is a complex cyst involving the upper pole of the right kidney measuring 3 x 4 cm. Small focus of increased echogenicity noted anteriorly and may be due to an area calcification. The cyst is not significantly changed. No hydronephrosis The left kidney is 12 x 6 x 5 cm. No hydronephrosis, cortical thinning, or renal mass or perinephric fluid collection is evident. IMPRESSION: Complex right renal cyst which appears stable from 12/17/2020.. Continued annual follow-up suggested. Dictated by: Gaurav Gould MD 06/25/2021 11:46 Gaurav Gould MD in [place] 06/25/2021 11:46
== END ==
PROVIDERS: PCP Physician Assistant; Visit Provider Physician Assistant
DX: N28.1 Cyst of kidney, acquired (principal)
CPT/HCPCS: 76770

== ENCOUNTER → 2021-08-06 13:37 | Outpatient (CLI) | payer MEDICARE, SELFPAY ==
[2021-08-06 13:48] LABS: Chloride 104 mmol/L (98-107)
[2021-08-06 13:49] LABS: Potassium 4.7 mmoL/L (3.5-5.1); Sodium 140 mmol/L (136-145)
[2021-08-06 13:51] LABS: Alanine Aminotransferase 24 U/L (12-78); Albumin Level 4.2 g/dl (3.5-5.0); Albumin/Globulin Ratio 1.5 (1.1-1.8); Alkaline Phosphatase 126 U/L (38-126); Aspartate Amino Transferase 28 U/L (17-59); Bilirubin,Total 0.5 mg/dl (0.2-1.3); Blood Urea Nitrogen 21 mg/dl (9-20); Estimated Glomerular Filt Rate 68 ml/min (>60); GFR (African American) 82 ML/MIN (>60); Globulin 2.8 g/dL (1.3-3.2)
[2021-08-06 13:52] LABS: Anion Gap 15.7 mEq/L (5-15); Calcium 9.9 mg/dl (8.4-10.2); Carbon Dioxide 25 mmol/L (22.0-30.0); Chol/HDL Ratio 3.8 (1-3.5); Cholesterol 165 mg/dl (140-200); Glucose 101 mg/dl (74-100); HDL Cholesterol 43 mg/dl (40-60); Triglycerides 144 mg/dl (30-150); VLDL Cholesterol 29 mg/dL (0-40)
[2021-08-06 14:00] LABS: Basophils # 0.1 K/mm3 (0-0.2); Basophils % 0.6 % (0.1-2.0); Eosinophils # 0.3 K/mm3 (0.0-0.4); Eosinophils % 2.7 % (0.1-12.0); Hematocrit 50.4 % (42.0-52.0); Hemoglobin 16.1 g/dL (14.1-18.0); Lymphocytes # 4.3 K/mm3 (0.7-4.5); Lymphocytes % 42.8 % (10-50); Mean Corpuscular HGB Conc 31.9 g/dL (31.8-35.4); Mean Corpuscular Hemoglobin 33.1 pg (27.0-31.2); Mean Corpuscular Volume 103.7 fl (80-94); Mean Platelet Volume 7.8 fl (7.4-10.4); Monocytes # 0.6 K/mm3 (0.1-1.0); Monocytes % 6.1 % (1.7-9.3); Neutrophils # 4.8 K/mm3 (1.8-7.8); Neutrophils % 47.8 % (37.0-80.0); Platelet Count 348 K/mm3 (142-424); Red Blood Count 4.86 M/mm3 (4.60-6.20); Red Cell Distribution Width 14.3 % (11.5-17.5); White Blood Count 10.1 K/mm3 (4.8-10.8)
[2021-08-06 14:03] LABS: Direct LDL Cholesterol 94.75 mg/dL (100-129)
[2021-08-06 14:16] LABS: 25-OH Vitamin D, Total 32.8 ng/mL (30-100)
[2021-08-06 14:23] LABS: Thyroid Stimulating Hormone 4.57 uIU/mL (0.465-4.68)
[2021-08-06 14:50] LABS: Prostate Specific Ag Screen 0.9 ng/ml (0.0-4.0)
== END ==
PROVIDERS: Visit Provider Physician Assistant
DX: E03.9 Hypothyroidism, unspecified (principal); E55.9 Vitamin D deficiency, unspecified; E78.5 Hyperlipidemia, unspecified; I10 Essential (primary) hypertension; I20.9 Angina pectoris, unspecified; R53.83 Other fatigue; R00.0 Tachycardia, unspecified; I35.1 Nonrheumatic aortic (valve) insufficiency; Z12.5 Encounter for screening for malignant neoplasm of prostate
CPT/HCPCS: 80053; 80061; 82306; 84439; 84443; 85025; G0103

== ENCOUNTER → 2022-03-03 13:32 | Outpatient (CLI) | payer MEDICARE, SELFPAY | PROVIDERS: Visit Provider Surgery | DX: Z01.812 Encounter for preprocedural laboratory examination (principal); Z11.52 Encounter for screening for COVID-19; D48.5 Neoplasm of uncertain behavior of skin | CPT/HCPCS: C9803; U0003; U0005 ==

== ENCOUNTER 2022-03-05 06:26 | Day surgery (SDC) | payer MEDICARE, SELFPAY ==
[2022-03-02 10:54] VITALS: BMI 27.3
[2022-03-05 06:53] VITALS: BP 145/88; PULSE 77; RESP 18; TEMP 36.5; O2SAT 97
[2022-03-05 08:07] VITALS: BP 165/81; PULSE 69; RESP 16; TEMP 36.6; O2SAT 98
[2022-03-05 08:17] VITALS: BP 165/81; PULSE 69; RESP 16; TEMP 36.6; O2SAT 98
--- NOTE | 2022-03-05 08:25 | HMH.OPNOTE ---
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 His left neck/chest and left anterior scalp region were prepped and draped in a sterile fashion. After infiltration local anesthetic the left lower neck/upper chest lesion was excised elliptically with a 1 mm margin (scalpel). Electrocautery was utilized to achieve hemostasis. The left scalp (hairline margin) lesion was excised in a similar manner. Once again, electrocautery was utilized to achieve hemostasis. Skin closed in an interrupted/mattress fashion with a combination of 4-0 nylon and 5-0 nylon. Dressings were applied and the patient was discharged in stable condition. Condition: stable Disposition: no change Specimens:: 1 cm left neck/chest skin lesion 1 cm left scalp lesion Complications:: No immediate
== END 2022-03-05 08:17 | disposition home or self-care (01) ==
LOC: OUTP 06:28
PROVIDERS: PCP Physician Assistant; Visit Provider Surgery
DX: L82.1 Other seborrheic keratosis (principal); I25.10 Atherosclerotic heart disease of native coronary artery without angina pectoris; E87.5 Hyperkalemia; I10 Essential (primary) hypertension; K75.9 Inflammatory liver disease, unspecified
CPT/HCPCS: 11421 ×2; 88305

== ENCOUNTER → 2022-08-10 07:41 | Outpatient (CLI) | payer MEDICARE, SELFPAY ==
[2022-08-10 20:30] LABS: Basophils % 0.6 % (0.1-2.0); Eosinophils # 0.2 K/mm3 (0.0-0.4); Eosinophils % 3.6 % (0.1-12.0); Hematocrit 49.9 % (42.0-52.0); Hemoglobin 15.7 g/dL (14.1-18.0); Lymphocytes # 1.4 K/mm3 (0.7-4.5); Mean Corpuscular HGB Conc 31.4 g/dL (31.8-35.4); Mean Corpuscular Hemoglobin 32.5 pg (27.0-31.2); Mean Corpuscular Volume 103.3 fl (80-94); Mean Platelet Volume 8.5 fl (7.4-10.4); Monocytes # 0.3 K/mm3 (0.1-1.0); Monocytes % 5.8 % (1.7-9.3); Platelet Count 343 K/mm3 (142-424); Red Blood Count 4.83 M/mm3 (4.60-6.20); Red Cell Distribution Width 14.6 % (11.5-17.5); White Blood Count 5.9 K/mm3 (4.8-10.8)
[2022-08-10 20:40] LABS: Alanine Aminotransferase 35 U/L (12-78); Albumin Level 4.5 g/dl (3.5-5.0); Albumin/Globulin Ratio 1.6 (1.1-1.8); Alkaline Phosphatase 123 U/L (38-126); Aspartate Amino Transferase 44 U/L (17-59); Bilirubin,Total 0.5 mg/dl (0.2-1.3); Blood Urea Nitrogen 12 mg/dl (9-20); Calcium 9.4 mg/dl (8.4-10.2); Carbon Dioxide 27 mmol/L (22.0-30.0); Chloride 100 mmol/L (98-107); Chol/HDL Ratio 5.8 (1-3.5); Cholesterol 260 mg/dl (140-200); Estimated Glomerular Filt Rate 61 ml/min (>60); GFR (African American) 74 ML/MIN (>60); Globulin 2.9 g/dL (1.3-3.2); Glucose 135 mg/dl (74-100); HDL Cholesterol 45 mg/dl (40-60); Sodium 140 mmol/L (136-145); Total Protein,Serum 7.4 g/dl (6.3-8.2); Triglycerides 203 mg/dl (30-150); VLDL Cholesterol 41 mg/dL (0-40)
[2022-08-10 20:51] LABS: Direct LDL Cholesterol 175.34 mg/dL (100-129)
[2022-08-10 20:58] LABS: 25-OH Vitamin D, Total 19.2 ng/mL (30-100)
[2022-08-10 21:11] LABS: Prostate Specific Ag Screen 0.7 ng/ml (0.0-4.0); Thyroid Stimulating Hormone 3.29 uIU/mL (0.465-4.68)
[2022-08-10 21:30] LABS: Vitamin B12 246 pg/mL (239-931)
[2022-08-11 12:09] LABS: Hemoglobin A1C 5.7 % (4.0-6.0)
== END ==
PROVIDERS: PCP Physician Assistant; Visit Provider Physician Assistant
DX: E03.9 Hypothyroidism, unspecified (principal); I10 Essential (primary) hypertension; E55.9 Vitamin D deficiency, unspecified; N52.9 Male erectile dysfunction, unspecified; Z12.5 Encounter for screening for malignant neoplasm of prostate; R73.09 Other abnormal glucose
CPT/HCPCS: 80053; 80061; 82306; 82607; 83036; 84443; 85025; G0103

== ENCOUNTER → 2022-08-20 15:02 | Outpatient (CLI) | payer MEDICARE, SELFPAY ==
--- NOTE | 2022-08-20 15:02 | CT_ITS ---
FINAL REPORT TECHNIQUE: Axial images were obtained from the lung apex to the mid abdomen by computed tomography. This study was performed with techniques to keep radiation doses as low as reasonably achievable (ALARA). Individualized dose reduction techniques using automated exposure control or adjustment of mA and/or kV according to the patient's size were employed. CLINICAL HISTORY: lung cancer screening, current smoker, smoker for 45 years 1ppd COMPARISON: 12/05/2020 FINDINGS: CHEST CT LOW DOSE CTDI vol (mGy): 2.90 DLP (mGy-cm): 103.94 There is no axillary adenopathy. There is no hilar or mediastinal adenopathy. The heart is normal in size. There is no pericardial or pleural effusion. There is emphysema. There is mild scattered scarring. Lung window images demonstrate no suspicious infiltrate or nodule. Redemonstrated is a hypodense left liver dome lesion measuring 15 mm, unchanged and likely a cyst. IMPRESSION: No evidence of primary lung neoplasm. Lung RADS category 1. Recommend 12 month follow-up low-dose chest CT. Reviewed, Interpreted and Dictated by Shae Phelps MD Transcribed by Kiya Garcia Authenticated and [facility] [place]
== END ==
PROVIDERS: PCP Physician Assistant; Visit Provider Physician Assistant
DX: Z87.891 Personal history of nicotine dependence (principal); Z12.2 Encounter for screening for malignant neoplasm of respiratory organs
CPT/HCPCS: 71271

== ENCOUNTER 2022-09-22 11:47 | Emergency (ER) | payer MEDICARE, SELFPAY ==
[2022-09-22 12:00] VITALS: BP 137/64; PULSE 67; RESP 16; TEMP 36.7; O2SAT 98; BMI 28.8
[2022-09-22 12:09] VITALS: BMI 28.8
--- NOTE | 2022-09-22 12:09 | XR_ITS ---
FINAL REPORT CLINICAL HISTORY: fall, left shoulder pain FINDINGS: LEFT SHOULDER Three views demonstrate no acute fracture or dislocation. There is mild degenerative change of the acromioclavicular joint. The visualized bony structures are well aligned. No soft tissue abnormality is seen. IMPRESSION: No acute bony abnormality. Reviewed, Interpreted and Dictated by Sal Brannon III, MD Transcribed by Karol Alvarez Authenticated and [facility]
--- NOTE | 2022-09-22 12:09 | CT_ITS ---
FINAL REPORT CLINICAL HISTORY: fall, pain with movement FINDINGS: Axial CT images of the cervical spine were obtained without contrast. Sagittal and coronal reformatted images were also obtained. This study was performed with techniques to keep radiation doses as low as reasonably achievable (ALARA). Individualized dose reduction techniques using automated exposure control or adjustment of mA and/or kV according to the patient's size were employed. There is no evidence of fracture or dislocation. There is mild anterolisthesis of C3 on C4 and C4 on C5. There are moderate degenerative changes. There is neural foraminal narrowing which is worse at C5-6 and C6-7. There is no evidence of canal stenosis. No paraspinous soft tissue abnormality is seen. Limited images of the upper thorax are unremarkable. IMPRESSION: No fracture or acute bony abnormality identified. Reviewed, Interpreted and Dictated by Sal Brannon III, MD Transcribed by Karol Alvarez Authenticated and [facility]
--- NOTE | 2022-09-22 12:09 | CT_ITS ---
FINAL REPORT CLINICAL HISTORY: fall, possible LOC, on blood thinner FINDINGS: Axial images of the head were obtained without contrast. Coronal reformatted images were also obtained. This study was performed with techniques to keep radiation doses as low as reasonably achievable (ALARA). Individualized dose reduction techniques using automated exposure control or adjustment of mA and/or kV according to the patient's size were employed. There is generalized age-appropriate atrophy. Periventricular low-attenuation areas are seen consistent with mild chronic ischemic changes. There is no evidence of intracranial hemorrhage or mass. There is no evidence of acute infarct. There is no evidence of shift of the midline structures. No skull abnormality is seen on the bone window images. IMPRESSION: Atrophy and mild periventricular chronic ischemic changes. No acute intracranial abnormality identified. Reviewed, Interpreted and Dictated by Sal Brannon III, MD Transcribed by Karol Alvarez Authenticated and [facility]
--- NOTE | 2022-09-22 12:11 | PC.NURSE ---
notified ER MD of pt presenting s/s, verbal orders obtained
--- NOTE | 2022-09-22 12:18 | ECG_ITS ---
APPROVED REPORT Exam: Resting ECG HR:65 bpm ECG Measurements Heart Rate 65 AXES IA 180 P 47 QRSd 107 QRS -3 QT 383 T 42 QTc 394 Conclusion SINUS RHYTHM NONSPECIFIC ST & T-WAVE ABNORMALITY BORDERLINE ECG UNCONFIRMED REPORT Electronically signed by : Mariusz Brantley MD 09/22/2022 21:06:11
--- NOTE | 2022-09-22 12:21 | PC.NURSE ---
pt to radiology
--- NOTE | 2022-09-22 13:46 | PC.NURSE ---
checked on pt at this time, pt sitting on side of bed. Pt states no needs at this time
[2022-09-22 14:03] VITALS: BP 151/73; PULSE 66; RESP 18; O2SAT 97
--- NOTE | 2022-09-22 14:24 | HMH.EDGENADL ---
Discharge Plan Disposition Patient Disposition: Home, Self-Care Condition: Good Chief Complaint: Fall Prescriptions Prescriptions: No Action clopidogrel 75 mg tablet 75 mg PO DAILY Qty: 90 3RF losartan 50 mg tablet 50 mg PO DAILY Qty: 90 1RF metoprolol succinate 100 mg tablet extended release 24 hr 150 mg PO DAILY Qty: 90 1RF aspirin 81 mg tablet,delayed release (DR/EC) 81 mg PO DAILY Qty: 90 1RF bupropion HCl 150 mg tablet sustained-release 12 hr 150 mg PO BID Qty: 180 1RF levothyroxine 25 mcg tablet 25 mcg PO DAILY Qty: 90 1RF nitroglycerin 0.4 mg tablet, sublingual 0.4 mg SUBLINGUAL Q5-15M PRN (Reason: chest pain) Qty: 30 5RF Rx Instructions: until response; do not exceed 3 doses per episode ergocalciferol (vitamin D2) 1,250 mcg (50,000 unit) capsule 1,250 mcg PO WEEKLY Qty: 14 3RF amlodipine 5 mg tablet 5 mg PO DAILY Qty: 30 3RF quetiapine 200 mg tablet 200 mg PO QHS Qty: 90 1RF rosuvastatin 40 MG tablet See Rx Instructions .Route .COMPLEX Rx Instructions: TAKE 1 TABLET EVERY DAY FOR CHOLESTEROL Referrals Follow up/Referrals: Stacy Booth PA [Primary Care Provider] - See instructions Activity Restrictions/Add. Instructions Additional Instructions/Restrictions: Tylenol as needed for pain. Heating pad 20 minutes 3-4 times a day as needed for his neck stiffness. Additional instructions for HEAD INJURY: See your physician as soon as possible for further evaluation. Return immediately if severe headache, vomiting, problems with vision or speech, numbness or weakness of the extremities, or severe neck pain. Clinical Impressions Clinical Impression: Concussion, Left shoulder strain Discharge ED Provider: Nitin Hartman General Adult HPI General Chief complaint: Fall Stated complaint: Fall@home 09/21 back pain, neck pain Time Seen by Provider: 09/22/22 14:45 Mode of Arrival: Ambulatory Source of Information: Patient Limitations: No Limitations Description of Symptoms (Recalled from ER Triage Doc. by RN): pt he feel lastnight, possible LOC unknown, pt reports unknown how he fell. Pt reports c/o pain on L side of neck, reports pain is worse with movement and radiates down to shoulder. Pt also c/o R shoulder blade pain area. pt is on a blood thinner Pt reports he had taken his seroquel prior to this, states at times this medication makes him wobbly. History of Present Illness HPI narrative: Patient states that he had a fall last night. He says that he took a sleeping pill and if he does not go straight to bed he gets to feeling drunk and staggering around. He says this happened last night and he fell in the hallway, falling backwards. He thinks it might of knocked him unconscious briefly. He says he thought he was fine until he woke up in the middle of the night with some soreness in his neck. Also has some soreness in his left shoulder blade area and left elbow. States he is on blood thinners because he has multiple stents in his heart. Denies recent illness. Related Data Home Medications Medication Instructions Recorded Confirmed rosuvastatin 40 mg tablet See Rx Instructions .Route 03/05/22 08/10/22 .COMPLEX Cholesterol Previous Rx's Medication Instructions Recorded aspirin 81 mg tablet,delayed 81 mg PO DAILY heart health #90 02/03/22 release tabs bupropion HCl 150 mg tablet,12 hr 150 mg PO BID Depression #180 ea 02/03/22 sustained-release levothyroxine 25 mcg tablet 25 mcg PO DAILY thyroid #90 tabs 02/03/22 nitroglycerin 0.4 mg sublingual 0.4 mg sublingual Q5-15M PRN chest 02/03/22 tablet pain #30 tabs clopidogrel 75 mg tablet 75 mg PO DAILY Blood thinner #90 08/10/22 tabs losartan 50 mg tablet 50 mg PO DAILY High blood pressure 08/10/22 #90 tabs metoprolol succinate 100 mg 150 mg PO DAILY High blood 08/10/22 tablet,extended release 24 hr pressure #90 tabs ergocalciferol (vitamin D2) 1,250
[2022-09-22 15:07] VITALS: BP 151/73; PULSE 66; RESP 18; TEMP 36.8; O2SAT 97
== END 2022-09-22 15:09 | disposition home or self-care (01) ==
PROVIDERS: Emergency Provider Emergency Medicine; PCP Physician Assistant
DX: S06.0XAA Concussion with loss of consciousness status unknown, initial encounter (principal); S46.912A Strain of unspecified muscle, fascia and tendon at shoulder and upper arm level, left arm, initial encounter; M54.2 Cervicalgia; W19.XXXA Unspecified fall, initial encounter; M25.522 Pain in left elbow; I25.10 Atherosclerotic heart disease of native coronary artery without angina pectoris; G89.29 Other chronic pain; E78.5 Hyperlipidemia, unspecified; I10 Essential (primary) hypertension; E03.9 Hypothyroidism, unspecified; M51.16 Intervertebral disc disorders with radiculopathy, lumbar region; I35.1 Nonrheumatic aortic (valve) insufficiency
CPT/HCPCS: 70450; 72125; 73030; 93005

== ENCOUNTER → 2023-02-16 06:42 | Outpatient (CLI) | payer MEDICARE, SELFPAY ==
--- NOTE | 2023-02-16 06:43 | CA_ITS ---
APPROVED REPORT EXAM: Comprehensive 2D, Doppler, and color-flow Echocardiogram Housekeeper/Custodian/Laundry Worker: Giovana Curry CRT Ht: 5 ft 9 in Wt: 203lbs BSA: 2.08 BP: 179/77 mmHg Indications: Chest Pain, Shortness of Breath, CAD, Hyperlipidemia, Hypertension/HDD 2D Dimensions LVOT 1.70 cm (M/F) 1.5-2.5 LA Volume 15.90 mL LA Volume Index 7.50 mL/m2 (M/F) 16-34 M-Mode Dimensions RVDd 3.21 cm (0.9-2.6) LA Diam 3.37 cm (1.9-4.0) LVDd 5.01 cm (3.5-5.7) Ao Diam 4.00 cm (2.0-3.7) LVDs 3.29 cm (3.5-5.7) IVSd 1.20 cm (0.6-1.1) PWd 0.72 cm (0.6-1.1) EF (Teich) 63.10% FS 34.30% EDV (Teich) 118.80 mL TAPSE 2.30 (<1.7) ESV (Teich) 43.80 mL LV Diastology E Decel Time 240.00 (160-240 msec) E/A Ratio 0.81 MED E' 5.10 (< 7 cm/sec) MED A' 8.40 cm/s E'/MED E' Ratio 12.27 (>14) LAT E' 7.30 (<10 cm/sec) LAT A' 11.00 cm/s E/LAT E' Ratio 8.58 (>14) Aortic Valve LVOT Max 118.00 (70-110 cm/s) LVOT VTI 32.47 cm AoV Peak Akhil. 164.00 (50-130 cm/s) AI PHT 613.00 ms AO Peak GR. 10.70 mmHg AO Mean GR. 6.90 (<5 mmHg) AO VTI 35.90 (18-25 cm) HEVER (VTI) 2.05 (2.5-4.5 cm2) Mitral Valve MV A Velocity 77.00 (40-130 cm/s) E/A Ratio 0.81 MV Decel. Time 240.00 (160-240 ms) Pulmonary Valve PV Peak Velocity 143.00 (50-150 cm/s) Tricuspid Valve TR P. Velocity 212.00 cm/s RAP Estimate 10.00 mmHg RVSP 28.00 mmHg Left Ventricle Left atrium is mildly enlarged, left ventricle is normal size mild concentric left ventricular hypertrophy, estimated ejection fraction 55% with no regional wall motion abnormality, grade 1 diastolic dysfunction seen without tissue Doppler evidence of raise left atrial pressure. Right Ventricle Right atrium and right ventricle mildly enlarged with normal contractility. Aortic Valve Aortic valve is minimally thickened and calcified without aortic stenosis, there is trace aortic insufficiency. Mitral Valve Mitral valve is grossly normal, there is trace mitral regurgitation. Tricuspid Valve Tricuspid valve grossly normal, there is trace tricuspid regurgitation, tricuspid regurgitation (inadequate for calculation of the right ventricular systolic pressure. Pulmonic Valve Pulmonic valve is poorly visualized. Great Vessels Aortic root is normal size. Inferior vena cava is normal size with normal inspiratory collapse. Pericardium No significant pericardial effusion noted. Conclusion 1. Mild biatrial enlargement, normal left ventricular size, estimated ejection fraction 55% with no regional wall motion abnormality, grade 1 diastolic dysfunction seen without tissue Doppler evidence of reduced left atrial pressure. 2. Mildly enlarged right ventricle with normal contractility. 3. Trace aortic, mitral and tricuspid regurgitation. 4. No significant pericardial effusion. 5. Inferior vena cava is normal size with normal inspiratory collapse. Electronically signed by : French De León MD 02/17/2023 05:48:16
--- NOTE | 2023-02-16 06:43 | CA_ITS ---
APPROVED REPORT Exam: Pharmacologic Technologist: Sonali Connelly Ht: 5 ft 9 in Wt: 203 lbs BSA: 2.08 m2 HR: 59 bpm BP: 127/58 mmHg Indications: Chest pain, Shortness of Air Medical History Medications: Amlodipine,,,,, Levothyroxine,,,,, Aspirin,,,,, Metoprolol,,,,, Losartan,,,,, CloPIdogrel,,,,, BuPROPION,,,,, Vitamin D2,,,,, Nitroglycerin,,,,, Quetiapine,,,,, RoSUVASTATIN,,,,, Stress Test Details Test: LEXISCAN HR Resting HR: 60 bpm Max Heart Rate (APMHR): 156.145023 bpm Max HR Achieved: 79 bpm Target HR (85% APMHR): 132.837096 bpm % of APMHR: 50.64 Recovery HR: 69 bpm BP Resting BP: 127.0/58.0 mmHg Max BP: 135.0/66.0 mmHg Recovery BP: 116.0/75.0 mmHg ECG Resting ECG: Normal sinus rhythm, T wave abnormalities inferiorly and laterally, PVC Clinical Exercise duration: 04:00 min Highest Stage Achieved: Stress ECG Conclusion Mild shortness of air. No chest pain. Arrhythmias/Ectopy: None ST-T Changes: No significant changes. Conclusion: Non-diagnositic Lexiscan stress. Myoview images reported separately. Test Summary REST . . . . . . . Resting REST 06:47 . . 60 . 127/ 58 . . Stage 1 . . . . . . . Myoview Injected Stage 1 01:00 . . 69 . . . . Stage 2 01:00 . . 78 . 125/ 61 . . Stage 3 01:00 . . 73 . 125/ 61 . . Stage 4 01:00 . . 71 . 116/ 59 . Stop exercise at 04:00 RECOVERY 01:00 . . 70 . . . . RECOVERY 02:00 . . 71 . 115/ 56 . . RECOVERY 03:00 . . 69 . 135/ 66 . . RECOVERY 04:00 . . 69 . 116/ 75 . . RECOVERY 04:17 . . 68 . 116/ 75 . . Electronically signed by : French De León MD 02/16/2023 19:27:58
--- NOTE | 2023-02-16 06:43 | NM_ITS ---
APPROVED REPORT Exam: Nuclear Stress Test Indication: CAD, 2 STENTS, HTN, HYPERLIPIDEMIA, TOB USE, FM HX, C.P., SOB, SYNCOPE Patient Location: Outpatient Stress Tech: Sonali Connelly ME Tech:Imelda Spain PHILT RT (R)(N)(M) Ht: 5 ft 9 in Wt: 200 lbs HR: 59 bpm BP: 127/58 mmHg BSA: 2.07 m2 TID: 1.29 BMI: 29.5 History: CAD, 2 STENTS, HTN, HYPERLIPIDEMIA, TOB USE, FM HX, C.P., SOB, SYNCOPE Procedure: Patient received 0.4 mg of intravenous Lexiscan, resting heart rate 59 bpm, resting blood pressure 127/58 mmHg, with Lexiscan maximum heart rate achieved was 78 bpm which is Less than 85 % of the maximum predicted heart rate and blood pressure was 125/61 mmHg. With Lexiscan, patient denied any complaint of chest pain. SOA Electrocardiogram Resting electrocardiogram shows sinus rhythm, with Lexiscan there is less than 1.[address] segment depression noted from the baseline EKG. The EKG portion of the Lexiscan is nondiagnostic. Cardiac Stress and Resting SPECT Images: Cardiac Stress and Resting SPECT images were obtained using technetium 99m Myoview 31.4 mCi stress and 10.50 mCi at rest. Gated SPECT analysis of segmental wall motion and calculation of the ejection fraction also done. Prone images were also obtained. Cardiac stress and rest SPECT images show a fixed defect inferoseptally consistent with area of myocardial scarring without significant terry-infarct ischemia, computer derived ejection fraction is 43% with moderate inferior septal wall hypokinesis. Right ventricle is normal size and contractility. Conclusion: 1. The EKG portion of the Lexiscan is nondiagnostic. 2. Scintigraphic evidence of myocardial scarring involving the inferoseptal wall without significant terry-infarct ischemia, computer derived ejection fraction 43% with segmental wall motion abnormality described above, right ventricle is normal size and contractility. 3. Abnormal Lexiscan Myoview study. Electronically signed by : French De León MD 02/16/2023 19:38:32
== END ==
LOC: RAD 06:43
PROVIDERS: PCP Physician Assistant; Visit Provider Nurse Practitioner Family
DX: E78.2 Mixed hyperlipidemia (principal); I10 Essential (primary) hypertension; I20.8 Other forms of angina pectoris
CPT/HCPCS: 78452; 93017; 93306; A9502; J2785

== ENCOUNTER 2023-03-01 08:08 | Day surgery (SDC) | payer MEDICARE, SELFPAY ==
[2023-03-01] VITALS (11 sets, daily range): BP systolic 103–173; BP diastolic 59–91; PULSE 61–74; RESP 16–20; TEMP 36.6; O2SAT 92–97; BMI 29.2
--- NOTE | 2023-03-01 07:57 | IR_ITS ---
APPROVED REPORT Patient Location: Outpatient Analytics Analyst: SOHAN Ewing RT (R) PROCEDURES Left heart catheterization Left ventriculogram Selective coronary angiogram INDICATION Known coronary artery disease, Accelerated angina pectoris, Abnormal Myoview, Informed consent was obtained prior to the procedure. COMPLICATIONS None Estimated Blood Loss: Less than 10 mls TECHNIQUE One percent lidocaine used to anesthetize the right anterior aspect of the wrist. The right radial artery was accessed via the Seldinger technique. A 6 Lebanese sheath was placed in the right radial artery. 150 mg magnesium sulfate, 800 mcg of nitroglycerin, 1mg Lidocaine and 5000 U Heparin were given through the arterial sheath. The papa catheter was also used to perform left heart catheterization, left ventriculogram and selective coronary angiogram. At the end of the procedure the sheath was removed good hemostasis was achieved using Traclet band, patient was transferred to the postop holding area in stable condition. ANGIOGRAPHIC RESULTS The left main artery Normal The left anterior descending artery Has proximal 80% multiple stenoses within the stent as well as additional 40% distal stenoses The circumflex artery Is a large dominant vessel gives rise to a large ramus intermedius which has an ostial 50 to 60% stenosis. There is a stent in the midportion of the circumflex artery proper which has a 50% in-stent restenotic lesion and 1 lesion The right coronary artery Vestigial normal The LEA ventriculogram reveals Dilated ventricle ejection fraction 45% The left ventricular end-diastolic pressure 25 mmHg IMPRESSION Severe three-vessel coronary disease as described above Dilated ventricle with reduced ejection fraction Elevated LVEDP PLAN 1. Refer to [facility] for surgical evaluation/CABG 2. Aggressive risk factor modification 3. Maximize antianginal medications and continue to diurese 4. Immediate avoidance of all tobacco products Electronically signed by : Anupam Guerrero MD 03/01/2023 11:24:32
[2023-03-01 09:02] LABS: Basophils % 0.4 % (0.1-2.0); Eosinophils # 0.2 K/mm3 (0.0-0.4); Eosinophils % 3.1 % (0.1-12.0); Hematocrit 46.5 % (42.0-52.0); Hemoglobin 15.1 g/dL (14.1-18.0); Mean Corpuscular HGB Conc 32.4 g/dL (31.8-35.4); Mean Corpuscular Volume 95.5 fl (80-94); Mean Platelet Volume 7.7 fl (7.4-10.4); Monocytes # 0.5 K/mm3 (0.1-1.0); Monocytes % 6.8 % (1.7-9.3); Neutrophils % 63.7 % (37.0-80.0); Platelet Count 263 K/mm3 (142-424); Red Blood Count 4.87 M/mm3 (4.60-6.20); Red Cell Distribution Width 14.2 % (11.5-17.5); White Blood Count 7.9 K/mm3 (4.8-10.8)
[2023-03-01 09:19] LABS: Chloride 98 mmol/L (98-107)
[2023-03-01 09:20] LABS: Potassium 3.6 mmoL/L (3.5-5.1); Sodium 139 mmol/L (136-145)
[2023-03-01 09:23] LABS: Anion Gap 14.6 mEq/L (5-15); Blood Urea Nitrogen 10 mg/dl (9-20); Calcium 9.3 mg/dl (8.4-10.2); Carbon Dioxide 30 mmol/L (22.0-30.0); Creatinine Clearance Estimated 79 mL/min (50-200); Estimated Glomerular Filt Rate 61 ml/min (>60); GFR (African American) 74 ML/MIN (>60); Glucose 110 mg/dl (74-100)
== END 2023-03-01 13:46 | disposition home or self-care (01) ==
PROVIDERS: PCP Physician Assistant; Visit Provider Internal Medicine
DX: R07.9 Chest pain, unspecified (principal); I25.118 Atherosclerotic heart disease of native coronary artery with other forms of angina pectoris; Z79.899 Other long term (current) drug therapy; E03.9 Hypothyroidism, unspecified; I10 Essential (primary) hypertension; E78.5 Hyperlipidemia, unspecified; F17.210 Nicotine dependence, cigarettes, uncomplicated; R94.30 Abnormal result of cardiovascular function study, unspecified
CPT/HCPCS: 80048; 85025; 93458; 99152; C1725; C1769; J1644; Q9967

== ENCOUNTER → 2023-06-07 08:33 | Outpatient (CLI) | payer MEDICARE, SELFPAY ==
--- NOTE | 2023-06-07 08:39 | US_ITS ---
FINAL REPORT TECHNIQUE: Sonographic images of the abdomen were obtained in all four quadrants. CLINICAL HISTORY: f/u liver cyst COMPARISON: CT 08/20/2022 FINDINGS: LIVER: Fatty infiltrated. There is a cyst in the left lobe of the liver measuring 1.8 cm, unchanged. There is a hyperechoic lesion also in the left lobe of liver measuring 2.6 cm which is nonspecific and could represent hemangioma. GALLBLADDER: Not visualized. The common duct measures 4 mm. This is within normal limits for age. PANCREAS: Unremarkable. RIGHT KIDNEY: 11.1 cm. No hydronephrosis. Right renal cyst with internal echoes is unchanged, not a simple cyst. LEFT KIDNEY: 11.2 cm. No hydronephrosis, mass or stone. SPLEEN: 11.0 cm. No focal splenic lesion. AORTA/IVC: No abdominal aortic aneurysm. Visualized IVC within normal limits. OTHER: No ascites. IMPRESSION: Fatty liver. Small hepatic cyst, unchanged. Hyperechoic liver lesion may be a hemangioma but is nonspecific. MRI could be performed to confirm. Unchanged complex right renal cyst. Reviewed, Interpreted and Dictated by Jia Mathews MD Transcribed by Naomi Forman Authenticated and [facility]
== END ==
LOC: RAD 08:34
PROVIDERS: PCP Physician Assistant; Visit Provider Physician Assistant
DX: K76.89 Other specified diseases of liver (principal); N28.1 Cyst of kidney, acquired
CPT/HCPCS: 76700

== ENCOUNTER 2023-06-14 10:23 | Emergency (ER) | payer MEDICARE, SELFPAY ==
[2023-06-14 10:30] VITALS: BP 181/81; PULSE 82; RESP 16; TEMP 36.1; O2SAT 98; BMI 28.3
--- NOTE | 2023-06-14 10:57 | HMH.EDGENADL ---
Discharge Plan Disposition Patient Disposition: Home, Self-Care Prescriptions Prescriptions: New ciprofloxacin HCl 0.2 % dropperette 5 drp otic (ear) BID 7 Days Qty: 14 0RF dexamethasone 4 mg tablet 4 mg PO DAILY Qty: 5 0RF No Action nitroglycerin 0.4 mg tablet, sublingual 0.4 mg SUBLINGUAL Q5-15M PRN (Reason: chest pain) Qty: 30 5RF Rx Instructions: until response; do not exceed 3 doses per episode metoprolol tartrate 50 mg tablet 50 mg PO BID Qty: 180 3RF losartan 50 mg tablet 50 mg PO DAILY Qty: 90 3RF Dulera 200-5 mcg/actuation HFA aerosol inhaler 2 puff inhalation BID Qty: 13 12RF aspirin 81 mg tablet,delayed release (DR/EC) 81 mg PO DAILY Qty: 90 1RF clopidogrel 75 mg tablet 75 mg PO DAILY Qty: 90 3RF ergocalciferol (vitamin D2) 1,250 mcg (50,000 unit) capsule 1,250 mcg PO WEEKLY Qty: 14 3RF levothyroxine 25 mcg tablet 25 mcg PO DAILY Qty: 90 1RF rosuvastatin 40 mg tablet 40 mg PO QHS Qty: 90 3RF varenicline [Chantix Continuing Month Box] 1 mg tablet 1 mg PO BID Qty: 56 4RF varenicline [Chantix Starting Month Box] 0.5 mg (11)- 1 mg (42) tablets,dose pack See Rx Instructions PO PER PKG DIR 28 Days Qty: 53 0RF Rx Instructions: PO PER PKG DIR Spiriva Respimat 2.5 mcg/actuation mist 2 inh inhalation DAILY Qty: 4 12RF quetiapine 200 mg tablet 200 mg PO DAILY Qty: 90 3RF furosemide [Lasix] 40 mg Tablet 40 mg PO DAILY Qty: 30 3RF Referrals Follow up/Referrals: Stacy Booth PA [Primary Care Provider] - See instructions Activity Restrictions/Add. Instructions Additional Instructions/Restrictions: Use eardrops twice daily as prescribed. Steroid orally once daily for 5 days. If you have any other concerning signs or symptoms, return to the ER or your family doctor for further evaluation. See your family doctor within a week to establish care. Take Tylenol 1000 mg every 6 hours (4 times daily) and ibuprofen 400 mg every 6 hours (4 times daily) as needed with food and water to prevent GI upset and kidney damage. Clinical Impressions Clinical Impression: Eardrum rupture, left Discharge ED Provider: Jose Victoria General Adult HPI General Chief complaint: Ear Stated complaint: [id number] ear bleeding Time Seen by Provider: 06/14/23 10:29 Mode of Arrival: Ambulatory Source of Information: Patient Limitations: No Limitations Description of Symptoms (Recalled from ER Triage Doc. by RN): Presents via POV d/t left ear pain. Pt reports he woke up in the middle of the night and inserted a q-tip in his ear and forgot about it. Pt then laid his head down causing injury to the ear by the q-tip. +Bleeding when pt awoke this morning. +blood thinners (unable to recall name). +Asa 81mg. History of Present Illness HPI narrative: This is a 63-year-old male with history of COPD, recent CABG currently on aspirin and Plavix, hypothyroidism, CHF, hypertension, hyperlipidemia presenting with left ear bleeding. Patient states that he put a Q-tip in his left ear around 3 AM today, 06/14. Laid down for getting the Q-tip was in his ear and had blood come out of his ear. Has had pain since that time. Denies any other trauma Related Data Previous Rx's Medication Instructions Recorded nitroglycerin 0.4 mg sublingual 0.4 mg sublingual Q5-15M PRN chest 02/03/22 tablet pain #30 tabs furosemide 40 mg tablet (Lasix) 40 mg PO DAILY #30 tabs 03/01/23 quetiapine 200 mg tablet 200 mg PO DAILY mood #90 tabs 04/26/23 aspirin 81 mg tablet,delayed 81 mg PO DAILY heart health #90 05/10/23 release tabs clopidogrel 75 mg tablet 75 mg PO DAILY Blood thinner #90 05/10/23 tabs ergocalciferol (vitamin D2) 1,250 1,250 mcg PO WEEKLY Supplement #14 05/10/23 mcg (50,000 unit) capsule caps levothyroxine 25 mcg tablet 25 mcg PO DAILY thyroid #90 tabs 05/10/23 mometasone-formoterol HFA 200 2 puff inhalation BID #13 grams 05/10/23 mcg-5 mcg/actuat
[2023-06-14 11:03] VITALS: BP 161/79; PULSE 76; RESP 18; O2SAT 98
[2023-06-14 11:06] VITALS: BP 161/79; PULSE 82; RESP 16; TEMP 36.1; O2SAT 98
== END 2023-06-14 11:07 | disposition home or self-care (01) ==
PROVIDERS: Emergency Provider Emergency Medicine; PCP Physician Assistant
DX: S09.22XA Traumatic rupture of left ear drum, initial encounter (principal); J44.9 Chronic obstructive pulmonary disease, unspecified; I11.0 Hypertensive heart disease with heart failure; I50.9 Heart failure, unspecified; E03.9 Hypothyroidism, unspecified; E78.5 Hyperlipidemia, unspecified; I25.118 Atherosclerotic heart disease of native coronary artery with other forms of angina pectoris; I35.1 Nonrheumatic aortic (valve) insufficiency; Z79.02 Long term (current) use of antithrombotics/antiplatelets; Z79.82 Long term (current) use of aspirin; X58.XXXA Exposure to other specified factors, initial encounter; F17.210 Nicotine dependence, cigarettes, uncomplicated
CPT/HCPCS: 99283

== ENCOUNTER → 2023-08-06 11:07 | Outpatient (CLI) | payer MEDICARE, SELFPAY ==
--- NOTE | 2023-08-06 11:10 | CA_ITS ---
APPROVED REPORT EXAM: Comprehensive 2D, Doppler, and color-flow Echocardiogram Hot Cell Technician: Rebecca Rangel, OZZIE, RVS Ht: 5 ft 8 in Wt: 198lbs BSA: 2.03 BP: 104/65 mmHg Indications: cad 3 months post CABG X4, SOA, smoker,HTN, HLD, Abn EKG 2D Dimensions Aortic Root 3.26 cm LA Volume 53.60 mL Left Atrium 3.45 cm LA Volume Index 25.80 mL/m2 (M/F) 16-34 LVOT 2.26 cm (M/F) 1.5-2.5 M-Mode Dimensions RVDd 3.52 cm (0.9-2.6) LA Diam 3.85 cm (1.9-4.0) LVDd 4.92 cm (3.5-5.7) Ao Diam 3.43 cm (2.0-3.7) LVDs 3.56 cm (3.5-5.7) IVSd 1.06 cm (0.6-1.1) PWd 1.19 cm (0.6-1.1) EF (Teich) 53.50% EPSs 0.94 cm FS 27.60% EDV (Teich) 113.90 mL TAPSE 1.69 (<1.7) ESV (Teich) 53.00 mL LV Diastology E Decel Time 200.00 (160-240 msec) E/A Ratio 0.68 MED E' 4.60 (< 7 cm/sec) MED A' 7.30 cm/s E'/MED E' Ratio 12.41 (>14) LAT E' 6.60 (<10 cm/sec) LAT A' 11.80 cm/s E/LAT E' Ratio 8.65 (>14) Aortic Valve LVOT Max 90.00 (70-110 cm/s) LVOT VTI 15.51 cm AoV Peak Akhil. 174.00 (50-130 cm/s) AI PHT 414.00 ms AO Peak GR. 12.00 mmHg AO Mean GR. 6.00 (<5 mmHg) AO VTI 31.54 (18-25 cm) HEVER (VTI) 1.97 (2.5-4.5 cm2) Mitral Valve MV A Velocity 84.00 (40-130 cm/s) E/A Ratio 0.68 MV Decel. Time 200.00 (160-240 ms) Pulmonary Valve PV Peak Velocity 142.00 (50-150 cm/s) Tricuspid Valve TR P. Velocity 226.00 cm/s RAP Estimate 10.00 mmHg RVSP 30.50 mmHg Left Ventricle The left ventricle is normal size. The left ventricular systolic function is normal. The left ventricular ejection fraction is within the normal range. There is normal left ventricular wall thickness. Mild hypokinesis of the septal and anteroseptal LV moore. The left ventricular diastolic function is normal. LVEF is 55%. Right Ventricle The right ventricle is normal size. The right ventricular systolic function is normal. Atria The left atrium size is normal. The right atrium size is normal. The interatrial septum is not well visualized. Aortic Valve The aortic valve is mildly thickened. There is no aortic valvular stenosis. Mild aortic regurgitation. Mitral Valve There is mild mitral annular calcification. The mitral valve leaflets are mildly thickened. No evidence of mitral valve stenosis. Trace mitral regurgitation. Tricuspid Valve The tricuspid valve leaflets are thin and pliable. Trace tricuspid regurgitation. There is insufficient TR jet to estimate RVSP. Pulmonic Valve The pulmonary valve is normal in structure. Trace pulmonic regurgitation. Great Vessels The aortic root is normal in size. The ascending aorta is borderline dilated. The ascending aorta measures 3.7 cm cm. IVC is normal in size and collapses >50% with inspiration. Pericardium Trivial pericardial effusion. Other Information Study Quality: Fair Conclusion Normal biventricular systolic function. Mild hypokinesis of the septal and anteroseptal LV moore. Mild AI. Trivial pericardial effusion. Electronically signed by : Liliana Mosher, 08/10/2023 23:24:58
== END ==
LOC: RT 11:07
PROVIDERS: PCP Physician Assistant; Visit Provider Nurse Practitioner Family
DX: I25.10 Atherosclerotic heart disease of native coronary artery without angina pectoris (principal); Z95.1 Presence of aortocoronary bypass graft
CPT/HCPCS: 93306

== ENCOUNTER 2024-04-03 07:16 | Outpatient (CLI) | payer MEDICARE, SELFPAY ==
--- NOTE | 2024-04-03 07:21 | US_ITS ---
FINAL REPORT CLINICAL HISTORY: abdominal bloating, shortness of breath COMPARISON: None FINDINGS: Sonographic images of the abdomen were obtained. The liver is fatty infiltrated. The gallbladder is surgically absent. There is no evidence of biliary ductal dilatation. The common hepatic duct measures 4 mm, which is within normal limits. The pancreas is partially obscured. The spleen size is normal. The right kidney measures 10.5 cm in length. There is a 4.1 cm cystic mass in the right kidney favored to represent a mildly complicated cyst. The left kidney measures 10.8 cm in length. There is normal renal echogenicity. There is no evidence of hydronephrosis. The aorta has an unremarkable appearance. Limited images of the inferior vena cava are unremarkable. IMPRESSION: Fatty liver. 4.1 cm cystic mass right kidney favor mildly complicated cyst. Reviewed, Interpreted and Dictated by Sal Brannon III, MD Transcribed by Naomi Forman Authenticated and [facility]
--- NOTE | 2024-04-03 09:24 | CA_ITS ---
APPROVED REPORT EXAM: Comprehensive 2D, Doppler, and color-flow Echocardiogram Senior Sales Assistant: Misa Calhoun RVT Ht: 5 ft 9 in Wt: 212lbs BSA: 2.12 BP: 140/80 mmHg Indications: SOA,CP,CABG,CAD,COPD,HTN,SMOKER,HLD 2D Dimensions LA Volume 29.90 mL LA Volume Index 14.10 mL/m2 (M/F) 16-34 M-Mode Dimensions RVDd 3.24 cm (0.9-2.6) LA Diam 4.03 cm (1.9-4.0) LVDd 5.53 cm (3.5-5.7) LVDs 3.89 cm (3.5-5.7) IVSd 1.08 cm (0.6-1.1) PWd 0.89 cm (0.6-1.1) EF (Teich) 56.10% FS 29.70% EDV (Teich) 149.30 mL TAPSE 1.12 (<1.7) ESV (Teich) 65.50 mL LV Diastology E Decel Time 200 (160-240 msec) E/A Ratio 0.9 Aortic Valve HEVER Index 1.15 cm2/m2 AoV Peak Akhil. 155.0 (50-130 cm/s) AI PHT 645.00 ms AO Peak GR. 9.60 mmHg AO Mean GR. 5.30 (<5 mmHg) AO VTI 33.4 (18-25 cm) HEVER (VTI) 2.49 (2.5-4.5 cm2) Mitral Valve MV E Max Akhil. 60.0 (40-130 cm/s) MV A Velocity 65.0 (40-130 cm/s) E/A Ratio 0.93 MV PHT 59.0 ms Pulmonary Valve PV Peak Velocity 47.0 (50-150 cm/s) Tricuspid Valve TR P. Velocity 255.00 cm/s RAP Estimate 10.00 mmHg RVSP 36.00 mmHg Left Ventricle The left ventricle is normal size. The left ventricular systolic function is low normal. There is increased LV wall thickness. There is normal LV segmental wall motion. The left ventricular diastolic function is normal. LVEF is 50%. Right Ventricle The right ventricle is mildly dilated. Right ventricle is mildly hypokinetic. Atria The left atrium size is normal. The right atrium size is normal. There is no Doppler evidence of interatrial shunt. Aortic Valve The aortic valve is mildly thickened. There is no aortic valvular stenosis. Mild aortic regurgitation. Mitral Valve The mitral valve leaflets are mildly thickened. Trace mitral regurgitation. No evidence of mitral valve stenosis. Tricuspid Valve The tricuspid valve leaflets are thin and pliable. Trace tricuspid regurgitation. There is insufficient TR jet to estimate RVSP. Pulmonic Valve The pulmonary valve is normal in structure. Mild pulmonic regurgitation. Great Vessels The aortic root is normal in size. The ascending aorta is borderline dilated, measuring 3.7 cm in diameter. IVC is normal in size and collapses >50% with inspiration. Pericardium There is no pericardial effusion. Other Information Study Quality: Fair Conclusion Low normal LV systolic function (LVEF 50%). Mildly dilated RV with mild reduction in RV function. Mild AI, mild AZ. Ascending aorta is borderline dilated, measuring 3.7 cm in diameter. Electronically signed by : Liliana Mosher MD 04/05/2024 10:24:24
== END 2024-04-03 23:59 | disposition home or self-care (01) ==
PROVIDERS: PCP Physician Assistant; Visit Provider Physician Assistant
DX: R14.0 Abdominal distension (gaseous) (principal); R06.00 Dyspnea, unspecified
CPT/HCPCS: 76700; 93306

== ENCOUNTER 2024-04-24 12:12 | Outpatient (CLI) | payer MEDICARE, SELFPAY ==
[2024-04-24 13:41] LABS: Blood Urea Nitrogen 9 mg/dl (9-20); Estimated Glomerular Filt Rate 67 ml/min (>60); GFR (African American) 81 ML/MIN (>60)
== END 2024-04-24 23:59 | disposition home or self-care (01) ==
LOC: LAB 12:14
PROVIDERS: PCP Physician Assistant; Visit Provider Physician Assistant
DX: R73.03 Prediabetes (principal); I10 Essential (primary) hypertension; F17.210 Nicotine dependence, cigarettes, uncomplicated
CPT/HCPCS: 36415; 82565; 84520

== ENCOUNTER 2024-04-25 07:49 | Outpatient (CLI) | payer MEDICARE, SELFPAY ==
--- NOTE | 2024-04-25 07:49 | NM_ITS ---
APPROVED REPORT Exam: Nuclear Stress Test Indication: Chest pain, Abnormal EKG, HTN, High cholesterol, Tobacco use, Family history, CAD, CABG Patient Location: Outpatient Stress Tech: Anjali Kent NM Tech:Kierra Torres, ARRT, RT (R)(N) Ht: 5 ft 9 in Wt: 212 lbs HR: 76 bpm BP: 162/84 mmHg BSA: 2.12 m2 Rhythm: NSR TID: 1.12 BMI: 31.3 History: Chest pain, Abnormal EKG, HTN, High cholesterol, Tobacco use, Family history, CAD, CABG Procedure: Patient received 0.4 mg of intravenous Lexiscan, resting heart rate 76 bpm, resting blood pressure 162/84 mmHg, with Lexiscan maximum heart rate achieved was 90 bpm which is % of the maximum predicted heart rate and blood pressure was 185/73 mmHg. With Lexiscan, patient denied any complaint of chest pain. Cardiac Stress and Resting SPECT Images: Cardiac Stress and Resting SPECT images were obtained using technetium 99m Myoview 32.5 mCi stress and 10.32 mCi at rest. Resting and stress imaging in supine and prone positions demonstrate a medium sized, moderate, partially reversible perfusion defect in the basal to mid inferior LV wall. Gated imaging demonstrates moderate reduction in global LV systolic function. There is severe hypokinesis of the basal inferior LV wall. LVEF is calculated at 35%. Conclusion: Medium sized, moderate, partially reversible perfusion defect in the basal to mid inferior LV wall. Gated imaging demonstrates moderate reduction in global LV systolic function. There is severe hypokinesis of the basal inferior LV wall. LVEF is calculated at 35%. Electronically signed by : Liliana Mosher MD 04/26/2024 17:24:58
--- NOTE | 2024-04-25 09:34 | CA_ITS ---
APPROVED REPORT Exam: Pharmacologic Technologist: Anjali Hensley, Ht: 5 ft 9 in Wt: 214 lbs BSA: 2.13 m2 HR: 74 bpm BP: 162/84 mmHg Rhythm: NSR Medical History Medications: Levothyroxine,,,,, Aspirin,,,,, Metoprolol Tartrate,,,,, CloPIdogrel,,,,, Vitamin D2,,,,, Nitroglycerin,,,,, Quetiapine,,,,, RoSUVASTATIN,,,,, Furosemide,,,,, BREztri aerosphere,,,,, Stress Test Details Test: LEXISCAN Reason for pharmacologic stress test: physical limitation. HR Resting HR: 76 bpm Max Heart Rate (APMHR): 154 bpm Max HR Achieved: 90 bpm Target HR (85% APMHR): 131 bpm % of APMHR: 58 Recovery HR: 81 bpm BP Resting BP: 162.0/84.0 mmHg Max BP: 185.0/73.0 mmHg Recovery BP: 164.0/76.0 mmHg ECG Resting ECG: SR, ST depression at basline in inferolateral leads Stress ECG: No significant ST changes Arrhythmia: None Clinical Exercise duration: 04:00 min Highest Stage Achieved: Stress ECG Conclusion Symptoms: dyspnea Arrhythmias/Ectopy: none ST-T Changes: [address] depression Conclusion: Nondiagnostic ECG portion of Lexiscan stress test due to baseline abnormalities. Myoview images are reported separately. Test Summary REST . . . . . . . Resting REST 06:49 . . 76 . 162/ 84 . . Stage 1 . . . . . . . Myoview Injected Stage 1 01:00 . . 85 . . . . Stage 2 01:00 . . 89 . 185/ 73 . . Stage 3 01:00 . . 83 . 159/ 91 . . Stage 4 01:00 . . 80 . 165/ 78 . Stop exercise at 04:00 RECOVERY 01:00 . . 82 . 138/ 90 . . RECOVERY 02:00 . . 80 . 144/ 84 . . RECOVERY 03:00 . . 78 . 144/ 84 . . RECOVERY 03:07 . . 77 . 164/ 76 . . Electronically signed by : Liliana Mosher MD 04/26/2024 17:22:43
[2024-04-25] MEDS: ISOTOPE MYOVIEW (PER STUDY) 1 DOSE IV (09:42)
[2024-04-25] MEDS: SODIUM CHLORIDE 0.9% 10ML SYR (RAD ONLY) 10 ML IV ×2 (09:42)
[2024-04-25] MEDS: REGADENOSON 0.4MG/5ML SYRINGE 0.400000000000000022 MG IV (09:42)
== END 2024-04-25 23:59 | disposition home or self-care (01) ==
LOC: RAD 07:49
PROVIDERS: PCP Physician Assistant; Visit Provider Nurse Practitioner Family
DX: R06.02 Shortness of breath (principal); I77.810 Thoracic aortic ectasia; Z95.1 Presence of aortocoronary bypass graft; J44.9 Chronic obstructive pulmonary disease, unspecified; I20.9 Angina pectoris, unspecified; F17.210 Nicotine dependence, cigarettes, uncomplicated
CPT/HCPCS: 78452; 93017; 93018; A9502; J2785

== ENCOUNTER 2024-05-02 07:07 | Outpatient (CLI) | payer MEDICARE, SELFPAY ==
--- NOTE | 2024-05-02 07:13 | CT_ITS ---
FINAL REPORT TECHNIQUE: Axial CT images of the abdomen were obtained with IV contrast only. Coronal reformatted images were also obtained. This study was performed with techniques to keep radiation doses as low as reasonably achievable (ALARA). Individualized dose reduction techniques using automated exposure control or adjustment of mA and/or kV according to the patient''s size were employed. CLINICAL HISTORY: abnormal US renal mass FINDINGS: There is a 20 mm mass in the left hepatic dome consistent with a cyst. There is mild fatty infiltration of the liver. There is an increased attenuation area in the posterior medial segment of the left hepatic lobe measuring 3 mm. It is uncertain if this represents an area of sparing of fatty infiltration or a contrast enhancing mass. Patient is status post cholecystectomy. The pancreas appears normal. The spleen size is within normal limits. There is a 4.1 cm lobular cystic mass in the lateral right kidney which appears to have septations within it, favor mildly complicated cyst (Bosniak category 2). There is a 13 mm simple cyst in the inferior pole of the right kidney. Diffuse vascular calcification is identified. There is a partially imaged 21 mm left common iliac artery aneurysm. There is no evidence of adenopathy. IMPRESSION: Cystic mass in the right kidney measures 4.1 cm, favor mildly complicated cyst (Bosniak category 2) but recommend follow-up CT in 6-12 months to evaluate for stability. Left common iliac artery aneurysm. Reviewed, Interpreted and Dictated by Sal Brannon III, MD Transcribed by Kiya Garcia Authenticated and [facility]
--- NOTE | 2024-05-02 07:13 | CT_ITS ---
FINAL REPORT CLINICAL HISTORY: ascending aorta dilation COMPARISON: 08/20/2022 FINDINGS: Thin section axial CT images of the chest were obtained with contrast. 3D reformatted images were also obtained. This study was performed with techniques to keep radiation doses as low as reasonably achievable (ALARA). Individualized dose reduction techniques using automated exposure control or adjustment of mA and/or kV according to the patient's size were employed. There is no evidence of pulmonary embolism. There is ectasia of the ascending aorta measuring 3.9 cm, stable. There is no evidence of thoracic aortic aneurysm or dissection. There are interval postoperative changes from median sternotomy. There is no evidence of mediastinal or hilar mass or adenopathy. There is no evidence of pulmonary mass or nodule. No localized inflammatory process is seen within the lungs. There is mild emphysema with mild pulmonary scarring. Multiple chronic right rib fracture is identified. IMPRESSION: Ectasia of the ascending aorta, stable. Reviewed, Interpreted and Dictated by Sal Brannon III, MD Transcribed by Kiya Garcia Authenticated and [facility]
[2024-05-02] MEDS: 0.9 % SODIUM CHLORIDE 50 ML VIAL IV (07:46)
[2024-05-02] MEDS: SODIUM CHLORIDE 0.9% 10ML SYR (RAD ONLY) 10 ML IV (07:47)
[2024-05-02] MEDS: IOPAMIDOL-370 (76%);100ML BOTTLE 70 ML IV (07:47)
== END 2024-05-02 23:59 | disposition home or self-care (01) ==
LOC: RAD 07:09
PROVIDERS: PCP Physician Assistant; Visit Provider Physician Assistant
DX: I77.810 Thoracic aortic ectasia (principal); R06.02 Shortness of breath; J44.9 Chronic obstructive pulmonary disease, unspecified; Z95.1 Presence of aortocoronary bypass graft; I20.9 Angina pectoris, unspecified; R93.1 Abnormal findings on diagnostic imaging of heart and coronary circulation; F17.210 Nicotine dependence, cigarettes, uncomplicated
CPT/HCPCS: 71275; 74160; Q9967

== ENCOUNTER 2024-05-19 09:44 | Outpatient (CLI) | payer MEDICARE, SELFPAY ==
--- NOTE | 2024-05-19 09:45 | MR_ITS ---
APPROVED REPORT Textiles Printer: CLINICAL INDICATION Evaluation for cardiomyopathy, LVEF assessment TECHNIQUE Image Acquisition: Cardiac magnetic resonance (CMR) was performed on Siemens Espree MRI 1.5T scanner. Software platform sequences were performed using the Siemens Tripsourcing MR B19 platform. A set of three-plane, low-resolution, large [id number] localizers were initially acquired. Then axial, coronal, sagittal TrueFISP, as well as axial HASTE images, were obtained. These were followed by gated TrueFISP breathold cinematic sequences obtained in the short axis with 8 mm slices and 2 mm gaps, 2-chamber (vertical long axis), 3-chamber, 4-chamber (horizontal long axis). A bolus of contrast was injected intravenously with first-pass sequences obtained in the short axis and four-chamber planes. After approximately 10 minutes, a TI software asset management analyst sequence was performed to determine the optimal TI time. Using the optimized TI time, delayed contrast enhancement segmented inversion???recovery TurboFLASH sequences were obtained in the short axis, 2-chamber, 3-chamber, and 4-chamber projections. 2D-velocity phase mapping was performed. Functional parameters were calculated by offline analysis on an independent workstation ([employer], [email or web address]). Contrast: ProHance??? (Gadoteridol) FINDINGS MORPHOLOGY AND FUNCTION Left ventricle: The left ventricle is normal in size. The indexed left ventricular end-diastolic volume (LVEDVi) is 43 ml/m2 (reference range 57-105 ml/m2 in males, 56-96 ml/m2 in females). There is mild reduction in left ventricular systolic function present. There is increase in left ventricular wall thickness (maximum 14.8 mm in the anteroseptal and anterior LV moore). There is moderate hypokinesis of the basal to mid inferior and inferolateral LV moore. LVEF is calculated at 40.3% (reference range 57-77%). Right ventricle: The right ventricle is normal in size. The indexed right ventricular end-diastolic volume (RVEDVi) is 53 ml/m2 (reference range 61-121 ml/m2 in males, 48-112 ml/m2 in females). There is mild reduction in right ventricular systolic function present. RVEF is calculated at 43.6% (reference range 52-72% in males, 51-71% in females). Atria: The left atrium is normal in size. The maximum indexed left atrial volume is 25 ml/m2 (reference range 26-52 ml/m2 in males, 27-53 ml/m2 in females). The right atrium is normal in size. The maximum indexed right atrial volume is 18 ml/m2 (reference range 18-90 ml/m2). Aorta: The diameter of the aortic annulus is normal, measuring 28 mm (coronal view reference range 21-30 mm in males, 19-27 mm in females). The diameter of the aortic sinus is normal, measuring 35 mm (coronal view reference range 25-42 mm in males, 24-36 mm in females). The diameter of the sinotubular junction is normal, measuring 32 mm (coronal view reference range 18-32 mm in males, 18-28 mm in females). The diameters of the ascending and descending thoracic aorta are normal. Main pulmonary artery: The main pulmonary artery diameter is normal. Pericardium: The pericardial thickness is normal. The pericardial thickness measures 1.7 mm (normal < 4.0 mm). There is no pericardial effusion. VALVES Aortic insufficiency is present. Systolic anterior motion of the mitral valve is not visualized. Ratio of pulmonary to systemic flow, Qp:Qs ratio = 1.13 (normal < or = 1.2, hemodynamically significant shunt > 1.5), demonstrating no evidence of hemodynamically significant shunt. TISSUE CHARACTERIZATION Resting Perfusion: There is resting hypoperfusion present in the basal to mid lateral and inferolateral LV moore. Myocardial Fibrosis and/or edema: Abnormal gadolinium kinetics are present. There is presence of subendocardial late gadolinium enhancement present in the basal to mid inferior lateral LV moore. The total LGE thickness is < 50% of the total myocardial thickness in the region, suggestive of presence of viable myocardium. T2-weighted imaging demonstrates no evidence of myocardial edema or inflammation. OTHER No other significant findings are noted. However, this exam is focused on the cardiac structure and function. IMPRESSION Normal LV size with mild reduction in LV systolic function. LVEDVi= 43 ml/m2 and LVEF= 40.3%. Increased LV wall thickness (max 14.8 mm in the anterior and anteroseptal LV moore) Normal RV size with mild reduction in RV systolic function. RVEDVi= 53 ml/m2 and RVEF= 43.6%. No atrial enlargement. AI is present. Resting hypoperfusion present in the basal to mid lateral and inferolateral LV moore. Subendocardial late gadolinium enhancement present in the basal to mid inferior lateral LV moore. Total LGE thickness is < 50% of the total myocardial thickness in the region, suggestive of presence of viable myocardium. Ratio of pulmonary to systemic flow, Qp:Qs ratio = 1.13 (normal < or = 1.2, hemodynamically significant shunt > 1.5), demonstrating no evidence of hemodynamically significant shunt. Overall, this study demonstrates mild reduction in LV systolic function (LVEF=40.3%) likely in the setting of underlying ischemia. The resting hypoperfusion and LGE pattern is most suggestive of ischemia in a dominant LCX territory. The LGE burden occupies < 50% of the total myocardial thickness, suggestive of presence of viable myocardial tissue in the region. Of note, there is also marked asymmetric increase in LV wall thickness that is approaching, but not meeting, HCM criteria < 15 mm. Further evaluation with repeat cardiac MRI (HCM protocol) in 3-5 years is suggested to evaluate for progression of LV wall thickness. COMPARISON None CRITICAL RESULT None COMMUNICATION Per this written report The findings of this cardiac MR were reviewed, reported, and signed by Guillermo Mosher MD (Injury Prevention Coordinator). Conclusion Electronically signed by : Liliana Mosher MD 05/29/2024 11:47:49
[2024-05-19] MEDS: GADOTERIDOL INJ 20ML SYRINGE 20 ML IV (11:06)
[2024-05-19] MEDS: SODIUM CHLORIDE 0.9% 10ML SYR (RAD ONLY) 10 ML IV (11:06)
[2024-05-19] MEDS: 0.9 % SODIUM CHLORIDE 50 ML VIAL 25 ML IV (11:06)
== END 2024-05-19 23:59 | disposition home or self-care (01) ==
LOC: RAD 09:45
PROVIDERS: PCP Physician Assistant; Visit Provider Nurse Practitioner Family
DX: I42.9 Cardiomyopathy, unspecified (principal)
CPT/HCPCS: 75561; A9576

== ENCOUNTER 2024-06-21 13:47 | Outpatient (CLI) | payer MEDICARE, SELFPAY ==
--- NOTE | 2024-06-21 13:54 | XR_ITS ---
FINAL REPORT CLINICAL HISTORY: choking/cough/cp COMPARISON: 12/09/2020 FINDINGS: TWO-VIEW CHEST There is mild cardiomegaly. Cardiac silhouette is larger than previous. Patient is status post median sternotomy, new since previous. The lungs are clear. There is no pneumothorax. IMPRESSION: No acute cardiopulmonary process. Reviewed, Interpreted and Dictated by Eusebio Cervantes MD Transcribed by Kiya Garcia Authenticated and [facility]
== END 2024-06-21 23:59 | disposition home or self-care (01) ==
LOC: RAD 13:48
PROVIDERS: PCP Physician Assistant; Visit Provider Internal Medicine
DX: T17.308A Unspecified foreign body in larynx causing other injury, initial encounter (principal); R05.9 Cough, unspecified; R07.9 Chest pain, unspecified
CPT/HCPCS: 71046

== ENCOUNTER 2025-10-04 08:03 | Outpatient (CLI) | payer MEDICARE, SELFPAY ==
--- OUTSIDE RECORDS SUMMARY | 2025-10-04 08:05 | XMS_ITS | Continuity of Care Document ---
Author Organization [facility] Address [address] [place] [address] Care Team Providers Care Wallpaper Hanger Name Role Phone Unavailable Community Health Worker Unavaila ble Assessment No assessment recorded. Plan of Treatment Reminders Order Date Submit Date Provider Last Modified By Organization Details Last Modified Time Details Appointments FOLLOW UP 30 2024 08:00A Howard Booth PA-C Not available Not available Not available Lab None recorded. Referral None recorded. Procedures None recorded. Surgeries None recorded. Imaging MR, angiogram , head + neck, w/ contrast [address] [place], [address], 10/04/2025 07:11:34 holter monitor [address], [address] [facility], [place], [address], 09/24/2025 11:39:24 MRI, brain, w/o contrast [address] (X-Ray), [address] [place] [address] [address], [place], [address], 10/04/2025 07:11:34 Medication Orders None recorded. Patient TargetsNo targets recorded. Patient Instructions Encounter Date Encounter Id Patient Instructions Last Modified By Organization Details Last Modified Time 09/24/2025 [id number] fainting: care instructions Not available 09/24/2025 11:15:18 Reason for Referral None Reported. Results Created Date Observation Date Name Description Value Unit Range Abnormal Flag Note LastModifiedBy Organization Detail LastModifiedTime 09/24/2009/24/2025 femi r monit or No observ ation record ed. [facility] [address] [facility] [address], [place], [address], 09/24/2025 16:13:13 Result Notes None recorded. Problems Name Problem SNOMED Code Status Onset Date Resolution Date Notes Provider Name and Address Organization Details Recorded Time Atheroscl erosis of coronary artery without angina pectoris 495845034052 103 Active 2023 JORGE LUIS Ortega [address] [place] [address], [address]67[address] 8, [employer] 5 11:04:39 Paresthes ia 03519356 Active 2023 JORGE LUIS Ortega [address] [place] [address], [address] 8, [employer] 4 14:21:08 Lesion of skin of face 667553701674 Completed 202305/24/2025 JORGE LUIS Ortega [address] [place] [address], 38270[address]288 8, [employer] 5 14:42:53 Insomnia 482464581 Active 2023 JORGE LUIS Ortega [address] [place] [address], 84024-857 8, [employer] 5 11:04:44 Hyperglyc emia 91663682 Active 2023 JORGE LUIS Ortega [address] [place] [address], 01693-097 8, [employer] 5 11:04:42 Chronic obstructi ve pulmonary disease 44624050 Active 2024 JORGE LUIS Ortega [address] [place] [address], 33[address]835 8, [employer] 14:42:42 Vitamin D deficienc y 25392582 Active 2024 JORGE LUIS Ortega [address] [place] [address], 96518-455 8, [employer] 14:42:58 Essential hypertens ion 55965919 Active 2024 JORGE LUIS Ortega [address] [place] [address], 05926-392 8, [employer] 14:42:49 Congestiv e heart failure 87046927 Active 2024 JORGE LUIS Ortega [address] [place] [address], 77872-682 8, [employer] 14:42:45 Hypothyro idism 55003989 Active 2024 JORGE LUIS Ortega [address] [place] [address], 50[address]997 8, [employer] 14:42:50 Mixed hyperlipi demia 292654258 Active 2024 JORGE LUIS Ortega [address] [place] [address], 99414-609 8, [employer] 14:42:55 Type 2 diabetes mellitus 26257972 Active 2024 JORGE LUIS Ortega [address] [place] [address], 98759-006 8, [employer] 14:42:56 Abdominal bloating 656109066 Active 2024 JORGE LUIS Ortega [address] [place] [address], 58756-260 8, [employer] 14:50:59 Syncope symptom 076166303 Active 2024 JORGE LUIS Ortega [address] [place] [address], 31644-101 8, [employer] 11:14:30 Arteriosc lerotic vascular disease 65965245 Active 2024 JORGE LUIS Ortega [address] [place], [address], [employer] 5 17:17:06 Problem Notes None recorded. Procedures Surgical History Date Name Laterality Status Provider Name and Address Organization Details Recorded Time Cardiac Surgery completed [employer] 10/31/2024 13:49:22 Imaging Results None recorded. Procedure Notes None recorded. Medical Equipment None Reported. Allergies Allergen ID Allergen Name Allergen Category Reaction Reaction Severity Criticality Documentation Date Start Date Code Code System Note Provider Name and Address Organization Details Recorded Time 08091 aluminum environme nt,medica tion other Not available Not available 10/31/2024 13586 04 [employer], [employer] 13:49:20 13052 metformin medicatio n diarrhea Not available Not available 06/21/2025 6809 [employer], [employer] 08:07:18 Medications Name Sig Start Date Stop Date Status Note LastModified by Organization Details LastModified Time furosemide 40 mg tablet TAKE 1 TABLET EVERY DAY NEEDED FOR EDEMA 2024 active Not Available Not Available Not Avai lable quetiapine 300 mg tablet TAKE 1 TABLET EVERY DAY DIRECTED FOR SLEEP. 2024 active Not Available Not Available Not Avai lable azithromyci n 250 mg tablet 10/31 completed Not Available Not Available Not Available metoprolol succinate ER 100 mg tablet,exte nded release 24 hr Take 1 tablet every day by oral route as directed for 90 days. 2024 active Not Available Not Available Not Avai lable quetiapine 200 mg tablet 02/01 completed Not Available Not Available Not Available clopidogrel 75 mg tablet Take 1 tablet every day by oral route for 90 days. 2024 active Not Available Not Available Not Avai lable ondansetron 8 mg disintegrat ing tablet Place 1 tablet 3 times a day by transling ual route as needed for 10 days. 07/08 completed Not Available Not Available Not Available levothyroxi ne 25 mcg tablet Take 1 tablet every day by oral route for 90 days. 2024 active Not Available Not Available Not Avai lable metoprolol tartrate 50 mg tablet 10/31 completed Not Available Not Available Not Available nitroglycer in 0.[address] 1 tablet by sublingua l route as needed for 30 days. 2024 active Not Available Not Available Not Avai lable ergocalcife rol (vitamin D2) 1,250 mcg (50,000 unit) capsule Take 1 capsule every week by oral route for 90 days, for Vitamin D deficienc y. 2024 active Not Available Not Available Not Avai lable metformin ER 500 mg tablet,exte nded release 24 hr Take 1 tablet every day by oral route for 30 days. 06/21 completed Not Available Not Available Not Available ezetimibe 10 mg tablet Take 1 tablet every day by oral route as directed for 90 days, for cholester ol. 2024 active Not Available Not Available Not Avai lable rosuvastati n 40 mg tablet Take 1 tablet every day by oral route at bedtime for 90 days. 2024 active Not Available Not Available Not Avai lable Breztri Aerosphere 160 mcg-9mcg-4. 8mcg/actuat ion HFA aerosol inhaler Inhale 2 puffs twice a day by inhalatio n route as directed for 30 days. 2024 active Not Available Not Available Not Avai lable Ozempic 0.25 mg or 0.5 mg (2 mg/3 mL) subcutaneou s pen injector Inject 0.25 mg every week by subcutane ous route for 28 days. 09/24 completed Not Available Not Available Not Available Vitals Date Recorded Body height Body mass index (BMI) Body weight Oxygen saturation Oxygen saturation in Arterial blood by Pulse oximetry Heart rate Body temperature Systolic And Diastolic Systolic And Diastolic Systolic And Diastolic Provider Name and Address Organization Details Last Updated DateTime 175.26 cm 31.3 kg/m2 09856.5 8 g 94 % 94 % 94 /min 97.4 [degF] 169/96 mm[Hg] 180/82 mm[Hg] 182/88 mm[Hg] Joselyn Martínez [employer] 11:32:39 Social History Question Answer Notes LastModified by Organizat ion Details LastModified Time Tobacco Smoking Status Current Every Day Smoker Nabila he, [employer] 10/31/2024 13:49:21 Do You Have An Advance Directive? No Information not available 10/31/2024 Is Your Home Air Conditioned? Yes Information not available 10/31/2024 How Many Years Have You Consumed Alcohol? 40 Information not available 10/31/2024 Do You Wear A Helmet When Biking? No Information not available 10/31/2024 Are You Blind Or Do You Have Difficulty Seeing? No Information not available 10/31/2024 What Is Your Level Of Caffeine Consumption? Moderate Information not available 09/24/2025 Are You A Caregiver? No [email or web address] Information not available 09/24/2025 What Type Of Production Artist Do You Use? None Information not available 10/31/2024 Have You Been To An Area Known To Be High Risk For COVID-19? No Information not available 10/31/2024 Are You Deaf Or Do You Have Serious Difficulty Hearing? No Information not available 10/31/2024 What Type Of Diet Are You Following? REGULAR Information not available 10/31/2024 What Is The Highest Grade Or Level Of School You Have Completed Or The Highest Degree You Have Received? [id number] [email or web address] Information not available 09/24/2025 How Many Days Of Moderate To Strenuous Exercise, Like A Brisk Walk, Did You Do In The Last 7 Days? 0 Information not available 10/31/2024 Have There Been Any Changes To Your Family Or Social Situation? No Information no t available 10/31/2024 Are There Any Guns Present In Your Home? Yes Information not available 10/31/2024 Which Of Your Hands Is Dominant? Right Information not available 10/31/2024 Do You Engage In Moderate/heavy Exercise (e.g. Brisk Walk, Jogging, Strength Training, Etc)? No [email or web address] Information not available 09/24/2025 What Is Your Home Situation? Other Information not available 10/31/2024 How Many Times In The Past Year Have You Used An Illegal Drug Or Used A Prescription Medication For Nonmedical Reasons? 9 [email or web address] Information not available 09/24/2025 Do You Have A Medical Power Of [place]? No Information not available 10/31/2024 What Was The Date Of Your Most Recent Tobacco Screening? 09/24/2025 [email or web address] Information not available 09/24/2025 Have You Ever Been Counseled For Unhealthy Alcohol Use? No Information not available 09/24/2025 Do You Have Any Pets? Yes Information not available 10/31/2024 What Is Your Relationship Status? Information not available 10/31/2024 Have You Repeated Any Grades? No Information not available 10/31/2024 Do You Wear A Seatbelt When Driving Or As A Passenger? Yes [email or web address] Information not available 09/24/2025 Do You Use Your Seat Belt Or Car Seat Routinely? Yes Information not available 10/31/2024 Do You Have Any Siblings? 0 Information not available 10/31/2024 Do You Have Smoke And Carbon Monoxide Detectors In Your Home? Yes Information not available 10/31/2024 Are You Passively Exposed To Smoke? Yes Information no t available 10/31/2024 Are There Any Smokers In Your House? Yes Information not available 10/31/2024 How Much Tobacco Do You Smoke? 0.25 PPD [email or web address] Information not available 09/24/2025 What Types Of Sporting Activities Do You Participate In? Nun [email or web address] Information not available 09/24/2025 Do You Use Sunscreen Routinely? No Information not available 10/31/2024 Has Tobacco Cessation Counseling Been Provided? Yes Information not available 10/31/2024 On What Date Was Tobacco Cessation Counseling Provided? 09/24/2025 [email or web address] Information not available 09/24/2025 How Many Years Have You Smoked Tobacco? 55 Information not available 10/31/2024 Have You Recently Traveled Abroad? No Information not available 10/31/2024 Do You Have Difficulty Walking Or Climbing Stairs? No Information not available 10/31/2024 Are You Currently In School? No Information not available 10/31/2024 Do You Feel Safe In Your Home? Yes Information not available 09/24/2025 Do You Have Any Dietary Restrictions? No Information not available 10/31/2024 How Many Days In The Past Year Have You Consumed 5 Or More Drinks? 3 Information no t available 10/31/2024 Sex: Unknown Functional Status Question Answer Note LastModified by Organizat ion Details LastModified Time How many times per week do you consume alcohol? 1-2 times per week [email or web address] Information not available 09/24/2025 Do you use any illicit or recreational drugs? No Information not available 10/31/2024 Do you or have you ever used any other forms of tobacco or nicotine? No Information not available 10/31/2024 What is your level of alcohol consumption? Occasional Information not available 10/31/2024 Are you currently employed? No Information not available 10/31/2024 Do you have transportation difficulties? No Information not available 10/31/2024 Are you able to walk independently without assistance or assistive devices? [email or web address] Information not available 10/31/2024 Do you have difficulty doing errands alone? No Information not available 10/31/2024 Are you able to care for yourself independently? Yes Information not available 10/31/2024 Do you have difficulty dressing, bathing, grooming, or toileting? No Information not available 10/31/2024 What is your exercise level? Moderate Information not available 10/31/2024 Mental Status Question Answer Note LastModified by Organizat ion Details LastModified Time Do you feel stressed (tense, restless, nervous, or anxious, or unable to sleep at night)? [id number] Information not available 09/24/2025 Do you have difficulty concentrating, remembering or making decisions? No Information no t available 10/31/2024 Are you or have you been involved with bullying? No Information not available 10/31/2024 Family History Relationship Description Onset Age of this Age Resolved Age Notes LastModified by Organization Details LastModified Time Brother Heart disease Not available 2023 13:51:02 Brother Malignant neoplasm of colon Not available 2023 13:51:30 Sister Malignant neoplasm of lung Not available 2023 13:51:12 Sister Heart disease Not available 2023 13:51:17 Medical History Condition Response Coronary Artery Disease N Other N Gout N Blood Diseases N Kidney Stones N Hyperthyroidism N Blood Transfusion N Breast Cancer N Emergency room visit since last appointm ent. N Lung Disease N COPD N Depression N Hypothyroidism N Dermatologic Disorders N Defects or Inherited Disease N Developmental or Behavioral Disorders N Breast Problem N Difficulty Swallowing N Anesthesia Complications N History of STI N Anxiety Disorder N Meniere's disease N Autoimmune disease N Muscle, Joint, or Bone Problems N Vision or Eye Problems N Arthritis N Infertility N Polyps N Mental Disorder N Congenital Anomalies N Acid Reflux (GERD) N Cancer N Stroke N Neurologic/Epilepsy N Endometriosis N Bladder or Kidney Problems N High Cholesterol N Liver Disease N Organ Transplant N Psychiatric/Mental Health Condition N Dialysis N Headaches N Fibromyalgia N Schizophrenia N Kidney Disease N Allergies/Hayfever N Heart Problems N Ear or Hearing Problems N Hospitalizations N Learning Disorder N Artificial Joints N Thyroid Problems Y GI Problems N Acne N ADD/ADHD N Eating Disorder N Anemia N Constipation N Mental Illness N Diabetes N Ovarian Cancer N Bedwetting N Hepatitis/Liver Disease N Tuberculosis N Eczema N Abuse/Domestic Violence N Diverticulitis N Asthma N Trauma/Violence N Substance Abuse N Amnesia/Cognitive Decline N Reflux/GERD N Depression/ depression N Hepatitis N Heart Disease N Pulmonary Embolism N Tourette Syndrome N Chronic Ear Infections N Pre-Eclampsia N Hypertension Y Chicken Pox N Autism Spectrum Disorder (ASD) N Osteoporosis N Thrombophilias N Immunizations Vaccine Type Date Status Note Provider Nam e and Address Organization Details Recorded Time COVID-19 vaccine, vector-nr, rS-Ad26, PF, 0.5 mL 02/27/2021 completed Nabila he, [employer] 10/31/2024 13:49:31 Hep B, adult 01/26/2017 completed Nabila he, [employer] 10/31/2024 13:49:32 Hep B, adult 07/21/2016 completed Nabila Vice null, [employer] 10/31/2024 13:49:32 Hep B, adult 08/24/2016 completed Nabila Vice null, [employer] 10/31/2024 13:49:32 Past Encounters Encounter ID Performer Location Encounter Start Date Encounter Closed Date Diagnosis/Indication Diagnosis SNOMED-CT Code Diagnosis ICD10 Code Diagnosis IMO Codes Diagnosis Note [id number] JORGE LUIS Ortega [facility] [address] [place] [address] 09/24/2025 10:29:31 09/24/2025 11:38:51 Syncope symptom 627951893 R55 [id number] Arterioscl erotic vascular disease 61565432 I25.10 3362 History of cerebrovascular accident 798616298 Z86.73 7693856 Health Concerns Section Related Observation LastModified by Organization Detai ls LastModified Time None Recorded Concern Status LastModified by Organization Details LastModified Time None Recorded Payers Encounter Date Sequence Insurance Name Policy Number Policy Mercer Covered Member ID Mercer Member ID Guarantor Name 09/24/2025 1 [employer] (MEDICARE REPLACEMENT/A DVANTAGE - PPO) Jesus Holland [id number] Anupam Holland Notes Date Note Type Note Provider Name and Address Organization Details Recorded Time 09/24/2025 text/html ROS as noted in the HPI Patient states that he has had 3 syncopal episodes over the last month. He blacks out and hits the floor. History of CAD and CABG. States he has no warning. History of stroke as well. Last time it happened he also fell down the stairs. JORGE LUIS Ortega [address] [place] [address], [address], [place] [email or web address] 09/24/2025 17:19:26
--- OUTSIDE RECORDS SUMMARY | 2025-10-04 08:05 | XMS_ITS | Data Portability ---
Author Organization [facility] Address [address] [place] [address] Care Team Providers Care Temporary Office Assistant Name Role Phone MEHREEN CARRENO Primary Care Provider Assessment No assessment recorded. Plan of Treatment Reminders Order Date Submit Date Provider Last Modified By Organization Details Last Modified Time Details Appointments None record ed. Lab urinal ysis, dipsti ck, auto 018 12/13/19 18 [email or web address] [facility], [address], [address], [place], [address], 8 11:38:46 Referral None record ed. Procedures None record ed. Surgeries None record ed. Imaging None record ed. Medication Orders None record ed. Patient TargetsNo targets recorded. Patient Instructions Encounter Date Encounter Id Patient Instructions Last Modified By Organization Details Last Modified Time 12/13/2017 [id number] Erection Problems: Care Instructions [email or web address] Not available 12/13/2017 11:38:46 Reason for Referral None Reported. Results Created Date Observation Date Name Description Value Unit Range Abnormal Flag Note LastModifiedBy Organization Detail LastModifiedTime 12/13/19 18 12/13/2017 urina lysis , dipst ick, auto Unknown Analyte Yellow Not Available [facility] [address], [place], [address], 12/13/2017 11:09:02 12/13/19 18 12/13/2017 urina lysis , dipst ick, auto Unknown Analyte Clear Not Available [facility] [address], [place], [address], 12/13/2017 11:09:02 12/13/19 18 12/13/2017 urina lysis , dipst ick, auto Unknown Analyte 1.015 Not Available [facility] [address], [place], [address], 12/13/2017 11:09:02 12/13/19 18 12/13/2017 urina lysis , dipst ick, auto Unknown Analyte 6.5 Not Available [facility] [address], [place], [address], 12/13/2017 11:09:02 12/13/19 18 12/13/2017 urina lysis , dipst ick, auto Unknown Analyte Negati ve Not Available [facility] [address], [place], [address], 12/13/2017 11:09:02 12/13/19 18 12/13/2017 urina lysis , dipst ick, auto Unknown Analyte Negati ve Not Available [facility] [address], [place], [address], 12/13/2017 11:09:02 12/13/19 18 12/13/2017 urina lysis , dipst ick, auto Unknown Analyte Negtiv e Not Available [facility] [address], [place], [address], 12/13/2017 11:09:02 12/13/19 18 12/13/2017 urina lysis , dipst ick, auto Unknown Analyte 100 mg/dl Not Available [facility] [address], [place], [address], 12/13/2017 11:09:02 12/13/19 18 12/13/2017 urina lysis , dipst ick, auto Unknown Analyte Negati ve Not Available [facility] [address], [place], [address], 12/13/2017 11:09:02 12/13/19 18 12/13/2017 urina lysis , dipst ick, auto Unknown Analyte 1 mg/dl Not Available [facility] [address], [place], [address], 12/13/2017 11:09:02 12/13/19 18 12/13/2017 urina lysis , dipst ick, auto Unknown Analyte Negati ve Not Available [facility] [address], [place], [address], 12/13/2017 11:09:02 12/13/19 18 12/13/2017 urina lysis , dipst ick, auto Unknown Analyte Negati ve Not Available [facility] [address], [place], [address], 12/13/2017 11:09:02 12/13/19 18 12/13/2017 urina lysis , dipst ick, auto Unknown Analyte Clean Catch Not Available [facility] [address], [place], [address], 12/13/2017 11:09:02 12/13/19 18 12/13/2017 urina lysis , dipst ick, auto Unknown Analyte Automa colette Not Available [facility] [address], [place], [address], 12/13/2017 11:09:02 Result Notes None recorded. Medical Equipment None Reported. Allergies No known drug allergies Medications Name Sig Start Date Stop Date Status Note LastModified by Organization Details LastModified Time Compound Tri-Mix SJM papaverine-phe ntalom-alprost [id number] /ml intracavernosa l solution as directed active Not Available Not Available No t Available Trimix (papaverine--p hentalom-alpro st [id number]-[id number] /ml intracavernosa l soln) active Not Available Not Available Not Available Trimix (papaverine--p hentalom-alpro st 87gr-1nm-97mxr /ml intracavernosa l soln) active Not Available Not Available Not Available Trimix (papaverine--p hentalom-alpro st 31df-7xy-61prq /ml intracavernosa l soln) active Not Available Not Available Not Available Trimix (papaverine--p hentalom-alpro st 44ds-8xv-76lhu /ml intracavernosa l soln) active Not Available Not Available Not Available Trimix (papaverine--p hentalom-alpro st 01lm-7oe-67lqg /ml intracavernosa l soln) active Not Available Not Available Not Available Compound Quad-Mix Injection #10 mL (20 mcg) (PGE-1 20 mcg Phentolamine 1 mg Papaverine 30 mg Atropine 0.15 mg per mL) as directed active Not Available Not Available No t Available Compound Quad-Mix Injection #10 mL (20 mcg) (PGE-1 20 mcg Phentolamine 1 mg Papaverine 30 mg Atropine 0.15 mg per mL) as directed 2020 active Not Available Not Available Not Avai lable quetiapine 100 mg tablet Take 1 tablet twice a day by oral route. active Not Available Not Available No t Available losartan 25 mg tablet Take 1 tablet every day by oral route. active Not Available Not Available No t Available gabapentin 300 mg capsule Take 1 capsule 3 times a day by oral route. active Not Available Not Available No t Available metoprolol succinate ER 25 mg tablet,extende d release 24 hr Take 1 tablet every day by oral route. active Not Available Not Available No t Available oxybutynin chloride 5 mg tablet Take 1 tablet twice a day by oral route. active Not Available Not Available No t Available rosuvastatin 5 mg tablet Take 1 tablet every day by oral route. active Not Available Not Available No t Available omeprazole 40 mg oral packet Take by oral route. active Not Available Not Available No t Available cyclobenzaprin e ER 15 mg capsule,extend ed release 24 hr Take 1 capsule every day by oral route. active Not Available Not Available No t Available Vitals Date Recorded Body height Body mass index (BMI) Body weight Heart rate Systolic And Diastolic Provider Name and Address Organization Details Last Updated DateTime 12/13/2017 172.72 cm 27.2 kg/m2 27372.03 g 86 /min 141/76 mm[Hg] Radha Garciaram [facility] 12/13/2017 11:06:18 Social History Question Answer Notes LastModified by Organizat ion Details LastModified Time Tobacco Smoking Status Current Every Day Smoker Radha Garciaram [facility] 12/13/2017 11:07:25 What Was The Date Of Your Most Recent Tobacco Screening? 12/13/2017 Information n ot available 01/09/2020 Sex: Unknown Functional Status Question Answer Note LastModified by Organization D etails LastModified Time What is your level of alcohol consumption? None [email or web address] Information not available 12/13/2017 Mental Status None recorded. Family History Nothing Reported. Medical History Condition Response Erectile Dysfunction Y Past Encounters Encounter ID Performer Location Encounter Start Date Encounter Closed Date Diagnosis/Indication Diagnosis SNOMED-CT Code Diagnosis ICD10 Code Diagnosis IMO Codes Diagnosis Note [id number] ARUN HOUSTON MD [facility] [address] [place] [address] 12/13/2017 10:00:45 12/13/2017 12:23:06 Impotence of organic origin 817359889 N52.9 his testostero ne level and PSA were within normal range. His PSA was 0.6 recently. His testostero ne was 907.he will follow up in 3 months in [place]. Health Concerns Section Related Observation LastModified by Organization Detai ls LastModified Time None Recorded Concern Status LastModified by Organization Details LastModified Time None Recorded Advance Directives Directive None Recorded Payers Insurance Date Sequence Insurance Name Policy Number Policy Mercer Covered Member ID Mercer Member ID Guarantor Name 08/21/2021 1 [employer] - CHOICECARE (PPO) Anupam Holland [id number] Anupam Holland 08/21/2021 [employer] (MEDICARE REPLACEMENT/A DVANTAGE - PPO) Anupam Holland [id number] Anupam Holland Notes Date Note Type Note Provider Name and Address Organization Details Recorded Time 12/13/2017 text/html patient was seen for initial visit in [place] for erectile dysfunction. He has a long smoking history. He tried oral medications without success. His here today for test dose with injection therapy. We discussed injection therapy. We discussed risk of priapism. He was instructed on technique. He was injected with 0.1 mL tri-mix. He had a 50% response. We discussed slowly increasing his dosage at home. He was given a prescription for tri-mix 20-30-1 per milliliter. ARUN HOUSTON MD [facility] [place], [address], [facility] 12/13/2017 11:39:21
--- NOTE | 2025-10-04 08:06 | MR_ITS ---
FINAL REPORT TECHNIQUE: Multiplanar MR without contrast CLINICAL HISTORY: syncope and collapse, increasing frequency FINDINGS: Diffusion sequences show no signal abnormality to indicate acute infarct. Scattered periventricular white matter signal changes are seen compatible with mild chronic ischemic gliotic disease. Moderate generalized atrophy is present. No mass, hemorrhage or edema is seen. Ventricles are normal. Major vascular flow voids are intact. IMPRESSION: 1. No mass, acute infarct or hydrocephalus 2. Atrophy and chronic ischemic white matter changes Reviewed, Interpreted and Dictated by Shae Phelps MD Transcribed by Kiya Garcia Authenticated and [facility]
--- NOTE | 2025-10-04 08:06 | MR_ITS ---
FINAL REPORT TECHNIQUE: 3-D [id number] sequences with and without contrast CLINICAL HISTORY: syncope and collapse, increasing in frequency FINDINGS: The distal internal carotid arteries are unremarkable. MCAs and ACAs are unremarkable. The distal vertebral arteries are stenotic. There is high-grade stenosis of the distal basilar artery. The remote control mirror installer are not well-seen, probably related to technique. No aneurysm is seen. The major venous sinuses are patent. IMPRESSION: Posterior circulation arterial disease. Recommend CTA correlation. Unremarkable MRV.. Reviewed, Interpreted and Dictated by Shae Phelps MD Transcribed by Kiya Garcia Authenticated and [facility]
--- OUTSIDE RECORDS SUMMARY | 2025-10-04 08:06 | XMS_ITS | Data Portability ---
Author Organization [place] [employer] [facility] Address [address] [place] [address] Care Team Providers Care Product Test Specialist Name Role Phone Unavailable Community Health Worker Unavaila ble Assessment No assessment recorded. Plan of Treatment Reminders Order Date Submit Date Provider Last Modified By Organization Details Last Modified Time Details Appointments FOLLOW UP 30 2024 08:00A Howard Booth PA-C Not available Not available Not available Lab microalbu min/creat inine, mass ratio, urine [address], [address] [place], [address], 07/27/2025 10:47:25 H pylori urea breath test, co2 infrared 2024 025 [place] [facility] ([facility], [address] [place] [address], [place], [address], 05/25/2025 16:08:08 HbA1c (hemoglob in A1c), blood [address], [address] [place], [address], 05/24/2025 14:42:37 glucose, fingersti ck, blood [address], [address] [place], [address], 05/24/2025 14:42:37 Referral None recorded. Procedures None recorded. Surgeries None recorded. Imaging MR, angiogram , head + neck, w/ contrast [address], [address], [place], [address], 10/04/2025 07:11:34 holter monitor [address], [address] [facility], [place], [address], 09/24/2025 11:39:24 MRI, brain, w/o contrast [address] (X-Ray), [address] [place] [address] [address], [place], [address], 10/04/2025 07:11:34 Medication Orders rosuvasta tin 40 mg tablet 2024 025 [facility], [address] [facility] [address], [place], [address], 07/27/2025 13:20:44 clopidogr el 75 mg tablet 2024 025 [facility], [address] [facility] [address], [place], [address], 07/27/2025 13:20:39 ezetimibe 10 mg tablet 2024 025 [facility], [address] [facility] [address], [place], [address], 07/27/2025 13:20:38 nitroglyc jeanne 0.4 mg sublingua l tablet 2024 025 [facility], [address] [facility] [address], [place], [address], 07/27/2025 13:20:45 quetiapin e 300 mg tablet 2024 025 [facility], [address] [facility] [address], [place], [address], 07/27/2025 13:20:46 Breztri Aerospher e 160 mcg-9mcg- 4.8mcg/ac tuation HFA aerosol inhaler 2024 025 [facility], [address] [facility] [address], [place], [address], 07/27/2025 13:20:46 Ozempic 0.25 mg or 0.5 mg (2 mg/3 mL) subcutane ous pen injector 2024 [facility], [address] [facility] [address], [place], [address], 09/24/2025 12:03:44 ergocalci ferol (vitamin D2) 1,250 mcg (50,000 unit) capsule 2024 025 [facility], [address] [facility] [address], [place], [address], 07/27/2025 13:20:41 metoprolo l succinate ER 100 mg tablet,ex tended release 24 hr 2024 025 [facility], [address] [address], [place], [address], 07/27/2025 13:20:47 levothyro xine 25 mcg tablet 2024 025 [facility], [address] [facility] [address], [place], [address], 07/27/2025 13:20:41 furosemid e 40 mg tablet 2024 025 [facility], [address] [facility] [address], [place], [address], 07/27/2025 13:20:37 Ozempic 0.25 mg or 0.5 mg (2 mg/3 mL) subcutane ous pen injector 2024 025 8 [facility], [address] [place] [address], [address], 09/24/2025 11:00:39 ondansetr on 8 mg disintegr ating tablet 2024 025 [facility], [address] [place] [address], [address], 07/08/2025 05:01:10 quetiapin e 300 mg tablet 2024 025 [facility], [address] [place] [address], [address], 06/21/2025 08:47:18 metformin ER 500 mg tablet,ex tended release 24 hr 2024 025 [facility], [address] [place] [address], [address], 06/21/2025 09:07:35 clopidogr el 75 mg tablet 2024 025 [facility], [address] [place] [address], [address], 02/01/2025 09:08:18 ezetimibe 10 mg tablet 2024 025 [facility], [address] [place] [address], [place], [address], 02/01/2025 09:08:21 nitroglyc jeanne 0.4 mg sublingua l tablet 2024 025 [facility], [address] [place] [address], [address], 02/01/2025 09:08:16 quetiapin e 300 mg tablet 2024 025 [facility], [address] [place] [address] [address], [place], [address], 02/01/2025 09:08:22 Breztri Aerospher e 160 mcg-9mcg- 4.8mcg/ac tuation HFA aerosol inhaler 2024 025 [facility], [address] [facility] [address], [place], [address], 02/01/2025 09:08:26 ergocalci ferol (vitamin D2) 1,250 mcg (50,000 unit) capsule 2024 025 [facility], [address] [address], [place], [address], 02/01/2025 09:08:23 metoprolo l succinate ER 100 mg tablet,ex tended release 24 hr 2024 025 [facility], [address] [address], [place], [address], 02/01/2025 09:08:12 levothyro xine 25 mcg tablet 2024 025 [facility], [address] [address], [place], [address], 02/01/2025 09:08:14 furosemid e 40 mg tablet 2024 025 [facility], [address] [address], [place], [address], 02/01/2025 09:08:25 Patient TargetsNo targets recorded. Patient Instructions Encounter Date Encounter Id Patient Instructions Last Modified By Organization Details Last Modified Time 02/01/2025 [id number] insomnia: care instructions [email or web address] Not available 02/01/2025 09:04:14 chronic obstructive pulmonary disease (COPD): care instructions [email or web address] Not available 02/01/2025 09:04:14 learning about copd and how to prevent lung infections [email or web address] Not available 02/01/2025 09:04:14 learning about high blood sugar [email or web address] Not available 02/01/2025 09:04:14 high blood pressure: care instructions [email or web address] Not available 02/01/2025 09:04:14 learning about high blood pressure [email or web address] Not available 02/01/2025 09:04:14 hypothyroidism: care instructions [email or web address] Not available 02/01/2025 09:04:14 heart failure: care instructions Not available 02/01/2025 09:04:14 learning about heart failure [email or web address] Not available 02/01/2025 09:04:14 05/24/2025 [id number] learning about type 2 diabetes Not available 05/24/2025 14:42:37 type 2 diabetes: care instructions [email or web address] Not available 05/24/2025 14:42:37 high blood pressure: care instructions [email or web address] Not available 05/24/2025 14:51:00 learning about high blood pressure [email or web address] Not available 05/24/2025 14:51:00 hypothyroidism: care instructions Not available 05/24/2025 14:51:00 chronic obstructive pulmonary disease (COPD): care instructions [email or web address] Not available 05/24/2025 14:51:00 learning about copd and how to prevent lung infections Not available 05/24/2025 14:51:00 06/21/2025 [id number] insomnia: care instructions [email or web address] Not available 06/21/2025 08:46:16 07/27/2025 [id number] learning about type 2 diabetes [email or web address] Not available 07/27/2025 10:47:25 type 2 diabetes: care instructions [email or web address] Not available 07/27/2025 10:47:25 09/24/2025 [id number] fainting: care instructions Not available 09/24/2025 11:15:18 Reason for Referral None Reported. Results Created Date Observation Date Name Description Value Unit Range Abnormal Flag Note LastModifiedBy Organization Detail LastModifiedTime 05/24/2005/25/2025 H PYLOR I BREAT H TEST H pylori breath test Negati ve negati ve Not Available [facility] ([facility]) [address] [facility], [place], [address], 05/25/2025 16:08:08 05/24/20 25 05/24/2025 HbA1c (hemo globi n A1c), blood HbA1c 6.5 Not Available [address], [address], 05/24/2025 14:17:06 05/24/20 25 05/24/2025 gluco se, finge rstic k, blood Blood Glucose: mg/dl 101 Not Available [address], [address], 05/24/2025 14:17:14 07/27/20 25 07/27/2025 micro album in/cr eatin ine, mass ratio , urine Microalbumin 80 mg/L Not Available [address], [address], 07/27/2025 10:23:35 07/27/20 25 07/27/2025 micro album in/cr eatin ine, mass ratio , urine Creatinine 300 mg/dL Not Available [address], [address], 07/27/2025 10:23:35 07/27/20 25 07/27/2025 micro album in/cr eatin ine, mass ratio , urine Ratio 30-300 mg/g Not Available [address], [address], 07/27/2025 10:23:35 09/24/20 25 09/24/2025 femi r monit or No observ ation record ed. [address], [address], 09/24/2025 16:13:13 Result Notes None recorded. Problems Name Problem SNOMED Code Status Onset Date Resolution Date Notes Provider Name and Address Organization Details Recorded Time Atheroscl erosis of coronary artery without angina pectoris 961078099104 103 Active 2023 KingmanJORGE LUIS Quintanilla [address] [place] [address], [address], [employer] 5 11:04:39 Paresthes ia 31133311 Active 2023 JORGE LUIS Ortega [address] [place] [address], [address], [employer] 4 14:21:08 Lesion of skin of face 357521981910 Completed 202305/24/2025 JORGE LUIS Ortega [address] [place] [address], [address], [employer] 5 14:42:53 Insomnia 171582546 Active 2023 JORGE LUIS Ortega [address] [place] [address], [address], [employer] 5 11:04:44 Hyperglyc emia 96310948 Active 2023 JORGE LUIS Ortega [address] [place] [address], [address], [employer] 5 11:04:42 Chronic obstructi ve pulmonary disease 03765012 Active 2024 JORGE LUIS Ortega [address] [place] [address], [address], [employer] 5 14:42:42 Vitamin D deficienc y 63589786 Active 2024 JORGE LUIS Ortega [address] [place] [address], [address], [employer] 5 14:42:58 Essential hypertens ion 32794211 Active 2024 JORGE LUIS Ortega [address] [place] [address], [address], [employer] 5 14:42:49 Congestiv e heart failure 21313175 Active 2024 JORGE LUIS Ortega [address] [place] [address], [address], [employer] 14:42:45 Hypothyro idism 90845498 Active 2024 JORGE LUIS Ortega [address] [place] [address], [address], [employer] 14:42:50 Mixed hyperlipi demia 427981684 Active 2024 JORGE LUIS Ortega [address] [place] [address], [address], [employer] 14:42:55 Type 2 diabetes mellitus 58770951 Active 2024 JORGE LUIS Ortega [address] [place] [address], [address], [employer] 14:42:56 Abdominal bloating 477007941 Active 2024 JORGE LUIS Ortega [address] [place] [address], [address], [employer] 14:50:59 Syncope symptom 769721334 Active 2024 JORGE LUIS Ortega [address] [place] [address], [address], [employer] 11:14:30 Arteriosc lerotic vascular disease 77387535 Active 2024 JORGE LUIS Ortega [address] [place] [address], [address], [employer] 17:17:06 Problem Notes None recorded. Procedures Surgical History Date Name Laterality Status Provider Name and Address Organization Details Recorded Time Cardiac Surgery completed [employer] 10/31/2024 13:49:22 Imaging Results None recorded. Procedure Notes None recorded. Medical Equipment None Reported. Allergies Allergen ID Allergen Name Allergen Category Reaction Reaction Severity Criticality Documentation Date Start Date Code Code System Note Provider Name and Address Organization Details Recorded Time 55705 aluminum environme nt,medica tion other Not available Not available 10/31/2024 28528 04 RxNorm Nabila Vice null, [employer] 4 13:49:20 03724 metformin medicatio n diarrhea Not available Not available 06/21/2025 6809 RxNorm Nabila Vice null, [employer] 5 08:07:18 Medications Name Sig Start Date Stop [...] and Address Organization Details Last Updated DateTime 5 175.26 cm 30.7 kg/m2 93454.2 1 g 95 % 95 % 100 /min 97.3 [degF] 150/84 mm[Hg] 152/90 mm[Hg] 148/82 mm[Hg] [employer] 5 09:17:49 Date Recorded Body height Body mass index (BMI) Body weight Oxygen saturation Oxygen saturation in Arterial blood by Pulse oximetry Heart rate Body temperature Systolic And Diastolic Systolic And Diastolic Provider Name and Address Organization Details Last Updated DateTime 5 175.26 cm 31.8 kg/m2 41296.0 8 g 95 % 95 % 94 /min 97.8 [degF] 150/98 mm[Hg] 160/98 mm[Hg] [employer] 5 14:15:15 Date Recorded Body height Body mass index (BMI) Body weight Oxygen saturation Oxygen saturation in Arterial blood by Pulse oximetry Heart rate Body temperature Systolic And Diastolic Systolic And Diastolic Provider Name and Address Organization Details Last Updated DateTime 5 175.26 cm 31.5 kg/m2 01622.6 1 g 96 % 96 % 80 /min 97.7 [degF] 190/80 mm[Hg] 196/90 mm[Hg] [employer] 5 08:09:03 Date Recorded Body height Body mass index (BMI) Body weight Heart rate Oxygen saturation Oxygen saturation in Arterial blood by Pulse oximetry Body temperature Systolic And Diastolic Systolic And Diastolic Provider Name and Address Organization Details Last Updated DateTime 5 175.26 cm 32.5 kg/m2 99293.0 4 g 98 /min 95 % 95 % 97.9 [degF] 146/84 mm[Hg] 150/82 mm[Hg] [facility] [employer] 5 10:21:49 Date Recorded Body height Body mass index (BMI) Body weight Oxygen saturation Oxygen saturation in Arterial blood by Pulse oximetry Heart rate Body temperature Systolic And Diastolic Systolic And Diastolic Systolic And Diastolic Provider Name and Address Organization Details Last Updated DateTime 5 175.26 cm 31.3 kg/m2 42808.5 8 g 94 % 94 % 94 /min 97.4 [degF] 169/96 mm[Hg] 180/82 mm[Hg] 182/88 mm[Hg] Joselyn Martínez [employer]. 5 11:32:39 Social History Question Answer Notes LastModified by Organizat ion Details LastModified Time Tobacco Smoking Status [facility] 13:49:21 Do You Have An Advance [...] Is Your Level Of Caffeine Consumption? Moderate [email or web address] Information not available 09/24/2025 Are You A Caregiver? No [email or web address] Information not available 09/24/2025 What Type Of White Sidewall Tire Buffer Do You Use? None Information not available [...] Or The Highest Degree You Have Received? WA24415-7 [email or web address] Information not available 09/24/2025 How Many Days [...] Brisk Walk, Jogging, Strength Training, Etc)? No [email or web address] Information not available 09/24/2025 What Is Your Home Situation? Other Information not available 10/31/2024 How Many Times In The Past Year Have You Used An Illegal Drug Or Used A Prescription Medication For Nonmedical Reasons? 9 [email or web address] Information not available 09/24/2025 Do You Have A Medical Power Of Dry Pan Operator? No Information not available 10/31/2024 What Was The Date Of Your Most Recent Tobacco Screening? 09/24/2025 [email or web address] Information not available 09/24/2025 Have You Ever Been Counseled For Unhealthy Alcohol Use? No Information not available 09/24/2025 Do You Have Any Pets? Yes Information not available 10/31/2024 What Is Your Relationship Status? Information not available 10/31/2024 Have You Repeated Any Grades? No Information not available 10/31/2024 Do You Wear A Seatbelt When Driving Or As A Passenger? Yes [email or web address] Information not available 09/24/2025 Do You Use [...] Much Tobacco Do You Smoke? 0.25 PPD [email or web address] Information not available 09/24/2025 What Types Of Sporting Activities Do You Participate In? Nun [email or web address] Information not available 09/24/2025 Do You Use Sunscreen Routinely? No Information not available 10/31/2024 Has Tobacco Cessation Counseling Been Provided? Yes Information not available 10/31/2024 On What Date Was Tobacco Cessation Counseling Provided? 09/24/2025 Information not available 09/24/2025 How Many Years Have You Smoked Tobacco? 55 Information not available 10/31/2024 Have You Recently Traveled Abroad? No Information not available 10/31/2024 Do You Have Difficulty Walking Or Climbing Stairs? No Information not available 10/31/2024 Are You Currently In School? No Information not available 10/31/2024 Do You Feel Safe In Your Home? Yes [email or web address] Information not available 09/24/2025 Do You Have Any Dietary Restrictions? No Information not available 10/31/2024 How Many Days In The Past Year Have You Consumed 5 Or More Drinks? 3 Information no t available 10/31/2024 Sex: Unknown Functional Status Question Answer Note LastModified by Organizat ion Details LastModified Time How many times per week do you consume alcohol? 1-2 times per week [email or web address] Information not available 09/24/2025 Do you use [...] anxious, or unable to sleep at night)? [id number] Information not available 09/24/2025 Do you have [...] Artery Disease N Other N Gout N Kidney Stones N Blood Diseases N Hyperthyroidism N Blood Transfusion N Breast Cancer N Emergency room visit since last appointm ent. N COPD N Depression N Dermatologic Disorders N Lung Disease N Hypothyroidism N Developmental or Behavioral Disorders N Defects or Inherited Disease N Breast Problem N Difficulty Swallowing N [...] N High Cholesterol N Liver Disease N Psychiatric/Mental Health Condition N Organ Transplant N Fibromyalgia N Headaches N Schizophrenia N Dialysis N Kidney Disease N Allergies/Hayfever N Heart Problems N Ear or Hearing Problems N Hospitalizations N Learning Disorder N Artificial Joints N Thyroid Problems Y GI Problems N Acne N ADD/ADHD N Eating Disorder N Anemia N Constipation N Mental Illness N Ovarian Cancer N Diabetes N Bedwetting N Hepatitis/Liver Disease N Tuberculosis N Eczema N Diverticulitis N Abuse/Domestic Violence N Asthma N Trauma/Violence N Substance Abuse [...] [id number], PF, 0.5 mL 02/27/2021 completed Nabila Vice null, [employer] 10/31/2024 13:49:31 Hep B, adult 01/26/2017 completed Nabila Vice null, [employer] 10/31/2024 13:49:32 Hep B, adult 07/21/2016 completed Nabila Vice null, [employer] 10/31/2024 13:49:32 Hep B, adult 08/24/2016 completed Nabila Vice null, [employer] 10/31/2024 13:49:32 Past Encounters Encounter ID Performer Location Encounter Start Date Encounter Closed Date Diagnosis/Indication Diagnosis SNOMED-CT Code Diagnosis ICD10 Code Diagnosis IMO Codes Diagnosis Note [id number] JORGE LUIS Ortega [facility] [address] [place] [address] 10/31/2024 13:16:36 10/31/2024 14:46:42 Insomnia 768018195 G47.00 Atheroscle rosis of coronary artery without angina pectoris 2329377487 08769 I25.10 Paresthesia 28189440 R20 .2 Lesion of skin of face 8129430328 06 L98.9 Hyperglycemia 65412430 R 73.9 Screening for malignant neoplasm of prostate 948557960 Z12.5 [id number] Stacy Booth [address] [address] 02/01/2025 08:27:46 02/01/2025 09:33:03 Atherosclerosis of coronary artery without angina pectoris 2621134492 65105 I25.10 Hyperglycemia 19681345 R 73.9 Insomnia 187153641 G47.0 0 Chronic ob structive pulmonary disease 09746715 J44.9 Vitamin D deficiency 347 52820 E55.9 Essential hypertension 38168477 I10 Congestive heart failure 20828509 I50.9 Hypothyroidism 77175285 E03.9 [id number] Stacy Booth [address] [address] 05/24/2025 13:56:54 05/24/2025 14:51:16 Abdominal bloating 804629161 R14.0 01498 May need EGD Type 2 roosevelt betes mellitus 21706853 E11.9 63567736 Atheroscle rosis of coronary artery without angina pectoris 9457825486 22186 I25.10 Chronic ob structive pulmonary disease 33878542 J44.9 Essential hypertension 59070737 I10 Hypothyroidism 97983043 E03.9 [id number] Stacy Booth [address] [address] 06/21/2025 07:51:38 06/21/2025 08:24:53 Well controlled type 2 diabetes mellitus 801390659 E11.9 115051 Insomnia 011959951 G47.0 0 [id number] Stacy Booth[address] [address] 07/27/2025 10:12:47 07/27/2025 10:41:07 Type 2 diabetes mellitus 35795765 E11.9 03003880 Chronic ob structive pulmonary disease 59688176 J44.9 Atheroscle rosis of coronary artery without angina pectoris 4261301177 81932 I25.10 Vitamin D deficiency 347 11491 E55.9 Congestive heart failure 23733057 I50.9 Hypothyroidism 67721398 E03.9 Essential hypertension 50869486 I10 Well contr olled type 2 diabetes mellitus 216351330 E11.9 Insomnia 391482172 G47.0 0 Mixed hyperlipidemia 267 830609 E78.2 [id number] JORGE LUIS Ortega [facility] [address] [place] [address] 09/24/2025 10:29:31 09/24/2025 11:38:51 Syncope symptom 292026948 R55 9919794942 Arterioscl erotic vascular disease 84837628 I25.10 3362 History of cerebrovascular accident 928675378 Z86.73 [id number] Health Concerns Section Related Observation LastModified by Organization Detai ls LastModified Time None Recorded Concern Status LastModified by Organization Details LastModified Time None Recorded Advance Directives Directive N: Payers Insurance Date Sequence Insurance Name Policy Number Policy Mercer Covered Member ID Mercer Member ID Guarantor Name 09/18/2025 [employer] (MEDICARE REPLACEMENT/A DVANTAGE - PPO) Jesus Holland [id number] Anupam Holland 09/22/2025 [place] [employer] [facility] Jesus Holland [id number] Anupam Holland 09/22/2025 1 [employer] (MEDICARE REPLACEMENT/A DVANTAGE - PPO) Jesus Holland [id number] Anupam Holland 09/18/2025 1 [employer] Jesus Holland [id number] Anupam Amalia Notes Date Note Type Note Provider Name and Address Organization Details Recorded Time 5 text/html ROS as noted in the HPI Patient presents for followup.Had lesion removed from left cheek but states that it was benign.Had cardiac cath - states he was told his stents look good. No new blockages.Taking medicine as prescribed and denies side effects but states has had trouble getting meds from [facility] and would like to go back to [facility]. JORGE LUIS Ortega [address] [place] [address], [address], [facility] [employer] [facility] 02/01/2025 12:46:48 5 text/html ROS as noted in the [facility] Patient presents for followupHistory of CAD, CHF, COPD, HTN, hypothyroidismStates his stomach always feels bloatedWould like to lose weight JORGE LUIS Ortega [address] [place], [address], [employer] 05/24/2025 15:07:47 5 text/html ROS as noted in the [facility] Patient presents for followupHas been out of Seroquel and has not been sleepingMetformin caused upset stomach and diarrhea JORGE LUIS Ortega [address] [place], [address], [employer] 06/21/2025 15:45:31 5 text/html ROS as noted in the [facility] Patient presents for followup. He is doing well. He did not get Ozempic at the pharmacy following last visit. He is sleeping better. JORGE LUIS Ortega [address] [place], [address], [employer] 07/27/2025 13:21:51 5 text/html ROS as noted in the [facility] Patient states that he has had 3 syncopal episodes over the last month. He blacks out and hits the floor. History of CAD and CABG. States he has no warning. History of stroke as well. Last time it happened he also fell down the stairs. JORGE LUIS Ortega [address] [place], [address], [employer] 09/24/2025 17:19:26
--- NOTE | 2025-10-04 08:07 | MR_ITS ---
FINAL REPORT CLINICAL HISTORY: SYNCOPE AND COLLAPSE, increasing frequency FINDINGS: Multiple projection images of the neck arterial vasculature were obtained with contrast. Raw data images were also reviewed. The right common carotid artery is patent. There is moderate stenosis involving the right ICA origin 40%. The left common carotid artery is patent. There is mild proximal left ICA stenosis measuring 20 to 30%. There is significant stenosis of the right vertebral artery origin considered greater than 50%. The right vertebral artery is dominant. The left vertebral artery shows multicentric stenoses proximally. There are distal vertebral artery stenoses at the level of the foramen magnum, worse on the left. IMPRESSION: No evidence of significant cervical carotid stenosis. Significant vertebral artery disease as above. Reviewed, Interpreted and Dictated by Shae Phelps MD Transcribed by Kiya Garcia Authenticated and [facility]
[2025-10-04 08:51] LABS: Blood Urea Nitrogen 9 mg/dl (9-20); Creatinine,Serum 1.10 mg/dl (0.66-1.25); Estimated Glomerular Filt Rate 67 ml/min (>60); GFR (African American) 81 ML/MIN (>60)
[2025-10-04] MEDS: GADOTERIDOL INJ 20ML SYRINGE 20 ML IV (09:33)
[2025-10-04] MEDS: 0.9 % SODIUM CHLORIDE 50 ML VIAL 10 ML IV (09:33)
== END 2025-10-04 23:59 | disposition home or self-care (01) ==
LOC: RAD 08:04
PROVIDERS: PCP Physician Assistant; Visit Provider Physician Assistant
DX: I65.03 Occlusion and stenosis of bilateral vertebral arteries (principal); I65.1 Occlusion and stenosis of basilar artery; G31.9 Degenerative disease of nervous system, unspecified; R90.82 White matter disease, unspecified
CPT/HCPCS: 36415; 70545; 70548; 70551; 82565; 84520; A9576